=== PATIENT | female | born 1945 | race Asian ===

== ENCOUNTER 2017-12-24 14:55 | Inpatient (IN) | payer MEDICARE, OTHER ==
[~2017-12-24] VITALS: Ht 152.4 cm; Wt 52.1 kg
[2017-12-24] MEDS ORDERED: LOSA50TA25 PO (15:06)
[2017-12-24] MEDS ORDERED: FENO160 PO (15:06)
[2017-12-24] MEDS ORDERED: FURO20 PO (15:06)
[2017-12-24] MEDS ORDERED: COLC0.6T67 PO (15:06)
[2017-12-24] MEDS ORDERED: METO25XL PO (15:06)
[2017-12-24] MEDS ORDERED: ATOR40TA28 PO (15:06)
[2017-12-24] MEDS ORDERED: GLIP5 PO (15:06)
[2017-12-24 16:17] LABS: BASOPHILS % (AUTO) 1.1 % (0.0-2.0); EOSINOPHILS % (AUTO) 6.5 % (1.0-6.0); HEMATOCRIT 35.9 % (36-46); HEMOGLOBIN 12.2 g/dL (12.0-16.0); LYMPHOCYTES # (AUTO) 2.5 K/uL (1.0-4.8); LYMPHOCYTES % (AUTO) 47.1 % (22.0-44.0); MEAN CORPUSCULAR HGB CONC 33.9 G/dL (31.0-37.0); MEAN CORPUSCULAR VOLUME 94 fL (80-100); MONOCYTES # (AUTO) 0.6 K/uL (0.1-1.0); MONOCYTES % (AUTO) 11.5 % (2.0-9.0); NEUTROPHILS # (AUTO) 1.8 K/uL (1.8-7.7); NEUTROPHILS % (AUTO) 33.8 % (40.0-70.0); RED CELL DISTRIBUTION WIDTH 17.9 % (11.5-14.5)
[2017-12-24 16:31] LABS: CALCIUM, TOTAL 8.7 mg/dL (8.8-10.5); CREATININE 1.28 mg/dL (0.60-1.30); POTASSIUM 4.8 mmol/L (3.5-5.1)
[2017-12-24 16:37] LABS: ALBUMIN 2.9 g/dL (3.4-5.0); BILIRUBIN,TOTAL 0.6 mg/dL (0.1-1.0); TOTAL PROTEIN, SERUM 6.8 g/dL (6.4-8.2)
[2017-12-24 16:46] LABS: PLATELET COUNT (AUTO) 103 K/uL (150-450)
[2017-12-24] MEDS ORDERED: DEXTROSE 50%-WATER 25 GM/50 ML SYRINGE IVP ONE ×2 (17:25→17:30)
[2017-12-24] MEDS ORDERED: ASPIRIN 81 MG CHEWABLE TABLET PO ONE (17:30)
[2017-12-24 17:33] LABS: GLUCOSE,POINT OF CARE 49 MG/DL (70-110)
[2017-12-24 17:43] LABS: INR 1.1 (0.9-1.1); PROTHROMBIN TIME 11.8 SEC (9.4-11.6)
[2017-12-24] MEDS ORDERED: 0.9% SODIUM CHLORIDE 10 ML SYRINGE IVP PRN (18:00)
[2017-12-24] MEDS ORDERED: ACETAMINOPHEN 325 MG TABLET PO PRN (18:00)
[2017-12-24] MEDS ORDERED: ONDANSETRON HCL 4 MG/2 ML VIAL IVP PRN ×2 (18:00→22:00)
[2017-12-24 18:09] LABS: APPEARANCE,URINE CLEAR (CLEAR); BILIRUBIN,URINE NEGATIVE (NEGATIVE); GLUCOSE, URINE (UA) NEGATIVE (NEGATIVE); KETONES,URINE NEGATIVE (NEGATIVE); LEUKOCYTE ESTERASE ,URINE SMALL (NEGATIVE); NITRATE,URINE NEGATIVE (NEGATIVE); OCCULT BLOOD,URINE MODERATE (NEGATIVE); PH,URINE 6.5 (5.0-8.0); PROTEIN,URINE POS 1+ (NEGATIVE); UROBILINOGEN,URINE 0.2 mg/dL (<=1.0)
[2017-12-24 18:23] LABS: GLUCOSE,POINT OF CARE 304 MG/DL (70-110)
[2017-12-24 18:28] LABS: BACTERIA,URINE Rare /HPF (None Seen); RBC,URINE 0-2 /HPF (0-2); SQUAMOUS EPITHELIAL CELL,UR Few /LPF (None Seen)
[2017-12-24 20:37] VITALS: BP 160/72
[2017-12-24] MEDS ORDERED: VITAD400 PO (20:53)
[2017-12-24] MEDS ORDERED: ASPI81TA87 PO (20:53)
[2017-12-24] MEDS ORDERED: MULT1TAB70 PO (20:53)
[2017-12-24] MEDS ORDERED: PNEUMOCOCCAL VACCINE POLYVALENT 0.5 ML VIAL [PPSV23] IM ONE (21:30)
[2017-12-24] MEDS ORDERED: MORPHINE SULFATE 4 MG/ML SYRINGE IVP PRN (22:00)
[2017-12-24] MEDS ORDERED: HYDROCODONE/ACETAMINOPHEN 5-325 MG TABLET PO PRN (22:00)
[2017-12-24] MEDS ORDERED: ZOLPIDEM TARTRATE 5 MG TABLET PO PRN (22:00)
[2017-12-24] MEDS ORDERED: BISACODYL 10 MG RECTAL RECTAL SUPPOSITORY PR PRN (22:00)
[2017-12-24] MEDS ORDERED: MAGNESIUM HYDROXIDE SUSPENSION 30 ML UDCUP PO PRN (22:00)
[2017-12-24] MEDS ORDERED: DEXTROSE 5%-0.45% SODIUM CHL 500 ML IV ONE (22:00)
[2017-12-25] VITALS (7 sets, daily range): BP systolic 139–165; BP diastolic 55–87
[2017-12-25] MEDS: HEPARIN SODIUM,PORCINE 5,000 UNITS/ML VIAL SQ SCH ×2 (00:29→08:49)
[2017-12-25] MEDS: GlipiZIDE 5 MG TABLET PO SCH ×2 (05:45→17:30)
[2017-12-25] MEDS: ACETAMINOPHEN 325 MG TABLET PO PRN (06:08)
[2017-12-25 06:43] LABS: CALCIUM, TOTAL 8.8 mg/dL (8.8-10.5); CREATININE 1.09 mg/dL (0.60-1.30); POTASSIUM 4.5 mmol/L (3.5-5.1)
[2017-12-25 06:47] LABS: BASOPHILS % (AUTO) 0.9 % (0.0-2.0); EOSINOPHILS % (AUTO) 7.6 % (1.0-6.0); HEMATOCRIT 32.9 % (36-46); HEMOGLOBIN 11.5 g/dL (12.0-16.0); LYMPHOCYTES % (AUTO) 41.4 % (22.0-44.0); MEAN CORPUSCULAR HEMOGLOBIN 32.7 pg (26.0-34.0); MEAN CORPUSCULAR HGB CONC 34.9 G/dL (31.0-37.0); MEAN CORPUSCULAR VOLUME 94 fL (80-100); MONOCYTES # (AUTO) 0.5 K/uL (0.1-1.0); MONOCYTES % (AUTO) 9.3 % (2.0-9.0); NEUTROPHILS % (AUTO) 40.8 % (40.0-70.0); PLATELET COUNT (AUTO) 90 K/uL (150-450); RED BLOOD CELL COUNT(AUTO) 3.51 MIL/uL (4.00-5.20); RED CELL DISTRIBUTION WIDTH 18.5 % (11.5-14.5)
[2017-12-25] MEDS: DOCUSATE SODIUM 100 MG CAPSULE PO SCH ×2 (08:49→20:06)
[2017-12-25] MEDS: ATORVASTATIN CALCIUM 40 MG TABLET PO SCH (08:49)
[2017-12-25] MEDS: FENOFIBRATE 48 MG TABLET PO SCH (08:49)
[2017-12-25] MEDS: ASPIRIN 81 MG CHEWABLE TABLET PO SCH (08:49)
[2017-12-25] MEDS: LOSARTAN POTASSIUM 50 MG TABLET PO SCH (08:49)
[2017-12-25] MEDS: PANTOPRAZOLE SODIUM 40 MG DR TABLET PO SCH (08:49)
[2017-12-25] MEDS: COLCHICINE 0.6 MG TABLET PO SCH (08:49)
[2017-12-25] MEDS: CHOLECALCIFEROL (VIT D3) 400 UNITS TABLET PO SCH (08:49)
[2017-12-25] MEDS ORDERED: METOPROLOL SUCCINATE 25 MG ER TABLET PO SCH (09:00)
[2017-12-25 09:15] LABS: THYROID STIMULATING HORMONE 1.57 uIU/mL (0.36-3.74)
[2017-12-26 03:43] VITALS: BP 149/68
[2017-12-26] MEDS: GlipiZIDE 5 MG TABLET PO SCH ×2 (05:56→17:52)
[2017-12-26 06:16] LABS: BASOPHILS % (AUTO) 1.5 % (0.0-2.0); EOSINOPHILS % (AUTO) 9.2 % (1.0-6.0); HEMATOCRIT 36.3 % (36-46); HEMOGLOBIN 12.4 g/dL (12.0-16.0); LYMPHOCYTES # (AUTO) 1.7 K/uL (1.0-4.8); LYMPHOCYTES % (AUTO) 41.3 % (22.0-44.0); MEAN CORPUSCULAR HEMOGLOBIN 32.3 pg (26.0-34.0); MEAN CORPUSCULAR HGB CONC 34.2 G/dL (31.0-37.0); MEAN CORPUSCULAR VOLUME 95 fL (80-100); MONOCYTES # (AUTO) 0.3 K/uL (0.1-1.0); MONOCYTES % (AUTO) 8.1 % (2.0-9.0); NEUTROPHILS # (AUTO) 1.6 K/uL (1.8-7.7); NEUTROPHILS % (AUTO) 39.9 % (40.0-70.0); PLATELET COUNT (AUTO) 101 K/uL (150-450); RED BLOOD CELL COUNT(AUTO) 3.84 MIL/uL (4.00-5.20); RED CELL DISTRIBUTION WIDTH 18.3 % (11.5-14.5)
[2017-12-26 06:26] LABS: CALCIUM, TOTAL 8.9 mg/dL (8.8-10.5); CREATININE 1.3 mg/dL (0.60-1.30)
[2017-12-26 07:50] VITALS: BP 149/73
[2017-12-26] MEDS: ATORVASTATIN CALCIUM 40 MG TABLET PO SCH (08:12)
[2017-12-26] MEDS: DOCUSATE SODIUM 100 MG CAPSULE PO SCH (08:12)
[2017-12-26] MEDS: CHOLECALCIFEROL (VIT D3) 400 UNITS TABLET PO SCH (08:12)
[2017-12-26] MEDS: COLCHICINE 0.6 MG TABLET PO SCH (08:12)
[2017-12-26] MEDS: ASPIRIN 81 MG CHEWABLE TABLET PO SCH (08:12)
[2017-12-26] MEDS: FENOFIBRATE 48 MG TABLET PO SCH (08:12)
[2017-12-26] MEDS: PANTOPRAZOLE SODIUM 40 MG DR TABLET PO SCH (08:12)
[2017-12-26] MEDS: LOSARTAN POTASSIUM 50 MG TABLET PO SCH (08:20)
[2017-12-26 11:33] VITALS: BP 158/62
[2017-12-26 11:55] LABS: ALBUMIN 2.9 g/dL (3.4-5.0); BILIRUBIN,TOTAL 0.8 mg/dL (0.1-1.0); TOTAL PROTEIN, SERUM 6.8 g/dL (6.4-8.2)
[2017-12-26 15:55] VITALS: BP 169/71
[2017-12-26] MEDS: ACETAMINOPHEN 325 MG TABLET PO PRN (17:52)
[2017-12-27 17:53] LABS: GLUCOMETER DEV NAME(LOC) 5N 1P; GLUCOSE,POINT OF CARE 138 MG/DL (70-110)
[2018-01-11] MEDS ORDERED: PANT40TA25 PO (15:21)
== END 2017-12-26 19:25 | disposition home or self-care (01) | DRG 439 ==
LOC: EMS 14:56 → 5S 18:16
PROVIDERS: ADMIT Internal Medicine; ATTEND Internal Medicine
DX: K85.90 Acute pancreatitis without necrosis or infection, unspecified (principal); B69.0 Cysticercosis of central nervous system; R00.1 Bradycardia, unspecified; I10 Essential (primary) hypertension; D69.6 Thrombocytopenia, unspecified; M10.9 Gout, unspecified; E11.649 Type 2 diabetes mellitus with hypoglycemia without coma; E78.00 Pure hypercholesterolemia, unspecified; E78.5 Hyperlipidemia, unspecified; I44.7 Left bundle-branch block, unspecified; Z79.82 Long term (current) use of aspirin; Z79.899 Other long term (current) drug therapy; Z79.4 Long term (current) use of insulin; Z28.21 Immunization not carried out because of patient refusal
CPT/HCPCS: 70450; 76700; 80074; 84443; 87086; 90686; 93005; 93971; 96374; G0378; J1644

== ENCOUNTER → 2018-04-19 | Outpatient (CLI) | payer MEDICARE, OTHER ==
[~2018-04-19] MED LIST: ASPI81TA87 PO; MULT1TAB70 PO; PANT40TA25 PO; VITAD400 PO
[2018-04-19 11:29] LABS: HEMATOCRIT 37.5 % (36-46); HEMOGLOBIN 12.7 g/dL (12.0-16.0)
[2018-04-19 12:04] LABS: CREATININE 1.37 mg/dL (0.60-1.30); PHOSPHORUS 4.1 mg/dL (2.5-4.9); POTASSIUM 4.6 mmol/L (3.5-5.1)
[2018-04-19 12:08] LABS: % IRON SATURATION 38.6 % (22-44)
[2018-04-19 13:09] LABS: CREATININE,URINE 55.5 mg/dL (30.0-125.0)
[2018-04-19 13:10] LABS: CREATININE,SERUM FOR CRCL 1.37 mg/dL (0.60-1.30)
[2018-04-20 07:07] LABS: FOLATE SERUM 15.9 ng/mL (5.4-)
== END | disposition home or self-care (01) ==
LOC: LABPV 09:07
PROVIDERS: ATTEND Internal Medicine Nephrology
DX: I13.0 Hypertensive heart and chronic kidney disease with heart failure and stage 1 through stage 4 chronic kidney disease, or unspecified chronic kidney disease (principal); E11.22 Type 2 diabetes mellitus with diabetic chronic kidney disease; N18.3 Chronic kidney disease, stage 3 (moderate); I50.9 Heart failure, unspecified
CPT/HCPCS: 81050; 82575; 82607; 82746; 83540; 83550; 83970; 84100; 84156; 84300; 84466; 85014; 85018

== ENCOUNTER → 2018-06-21 | Outpatient (CLI) | payer MEDICARE ==
[2018-06-21 10:34] LABS: CREATININE 1.29 mg/dL (0.60-1.30); POTASSIUM 4.5 mmol/L (3.5-5.1)
[2018-06-21 10:35] LABS: CHOL/HDL RATIO 8.5 (3.9-5.7)
[2018-06-21 12:56] LABS: APPEARANCE,URINE CLOUDY (CLEAR); BILIRUBIN,URINE NEGATIVE (NEGATIVE); GLUCOSE, URINE (UA) NEGATIVE (NEGATIVE); KETONES,URINE NEGATIVE (NEGATIVE); LEUKOCYTE ESTERASE ,URINE MODERATE (NEGATIVE); NITRATE,URINE NEGATIVE (NEGATIVE); OCCULT BLOOD,URINE TRACE (NEGATIVE); PH,URINE 5.5 (5.0-8.0); PROTEIN,URINE SEE CONFIRM (NEGATIVE)
[2018-06-21 13:14] LABS: RBC,URINE 0-2 /HPF (0-2); SULFOSALICYLIC ACID,URINE 3+ (Negative); WBC,URINE 26-50 /HPF (0-5)
[2018-06-21 13:15] LABS: BACTERIA,URINE Moderate /HPF (None Seen); SQUAMOUS EPITHELIAL CELL,UR Moderate /LPF (None Seen)
[2018-06-21 14:23] LABS: PROTEIN,URINE RANDOM 244 mg/dL (0-11.9)
[2018-06-23 07:16] LABS: ALPHA-1 (IFE & PEP) 0.2 g/dL (0.0-0.4); BETA (IFE & ELP) 1.1 g/dL (0.7-1.3); GAMMA GLOBULINS (IFE & ELP) 1.7 g/dL (0.4-1.8); IGM (IMMUNOFIXATION) 212 mg/dL (26-217)
[2018-06-23 09:46] LABS: ALPHA-1 URINE 5.8 %; ALPHA-2 URINE 3.4 %
== END | disposition home or self-care (01) ==
LOC: LABPV 08:56
PROVIDERS: ATTEND Internal Medicine Nephrology
DX: I13.0 Hypertensive heart and chronic kidney disease with heart failure and stage 1 through stage 4 chronic kidney disease, or unspecified chronic kidney disease (principal); E11.22 Type 2 diabetes mellitus with diabetic chronic kidney disease; N18.3 Chronic kidney disease, stage 3 (moderate); I50.9 Heart failure, unspecified; R80.9 Proteinuria, unspecified
CPT/HCPCS: 82570; 82784; 84155; 84156; 84165; 84166; 86160; 86334; 86335; 87086

== ENCOUNTER → 2018-10-03 | Outpatient (CLI) | payer MEDICARE, OTHER ==
[2018-10-03 12:34] LABS: BASOPHILS % (AUTO) 1.5 % (0.0-2.0); EOSINOPHILS % (AUTO) 8.5 % (1.0-6.0); HEMATOCRIT 39.5 % (36-46); HEMOGLOBIN 12.9 g/dL (12.0-16.0); LYMPHOCYTES # (AUTO) 2.4 K/uL (1.0-4.8); LYMPHOCYTES % (AUTO) 47.3 % (22.0-44.0); MEAN CORPUSCULAR HEMOGLOBIN 31.4 pg (26.0-34.0); MEAN CORPUSCULAR HGB CONC 32.7 G/dL (31.0-37.0); MEAN CORPUSCULAR VOLUME 96 fL (80-100); MONOCYTES # (AUTO) 0.3 K/uL (0.1-1.0); MONOCYTES % (AUTO) 6.2 % (2.0-9.0); NEUTROPHILS # (AUTO) 1.8 K/uL (1.8-7.7); NEUTROPHILS % (AUTO) 36.5 % (40.0-70.0); PLATELET COUNT (AUTO) 108 K/uL (150-450); RED BLOOD CELL COUNT(AUTO) 4.11 MIL/uL (4.00-5.20); RED CELL DISTRIBUTION WIDTH 17.1 % (11.5-14.5)
[2018-10-03 12:45] LABS: INR 1.1 (0.9-1.1); PROTHROMBIN TIME 11.1 SEC (9.4-11.6)
[2018-10-03 12:59] LABS: CREATININE,URINE RANDOM 100.4 mg/dL (30.0-125.0)
[2018-10-03 13:00] LABS: ALBUMIN 2.8 g/dL (3.4-5.0); BILIRUBIN,TOTAL 0.9 mg/dL (0.1-1.0); CALCIUM, TOTAL 9.6 mg/dL (8.8-10.5); CHOL/HDL RATIO 4.5 (3.9-5.7); CREATININE 1.28 mg/dL (0.60-1.30); POTASSIUM 4.3 mmol/L (3.5-5.1); TOTAL PROTEIN, SERUM 7.3 g/dL (6.4-8.2)
== END | disposition home or self-care (01) ==
LOC: LABPV 09:50
PROVIDERS: ATTEND Internal Medicine Nephrology
DX: E11.22 Type 2 diabetes mellitus with diabetic chronic kidney disease (principal); I12.9 Hypertensive chronic kidney disease with stage 1 through stage 4 chronic kidney disease, or unspecified chronic kidney disease; N18.3 Chronic kidney disease, stage 3 (moderate); E78.49 Other hyperlipidemia; R80.9 Proteinuria, unspecified
CPT/HCPCS: 82570; 84156

== ENCOUNTER → 2019-03-05 | Outpatient (CLI) | payer MEDICARE, OTHER ==
[~2019-03-05] MED LIST changes: +CHOL400T56 PO; -VITAD400 PO
[2019-03-05 10:48] LABS: HEMATOCRIT 35.9 % (36-46); HEMOGLOBIN 12.2 g/dL (12.0-16.0)
[2019-03-05 11:05] LABS: CALCIUM, TOTAL 9.2 mg/dL (8.8-10.5); CREATININE 1.51 mg/dL (0.60-1.30); POTASSIUM 4.5 mmol/L (3.5-5.1)
== END | disposition home or self-care (01) ==
LOC: LABPV 08:31
PROVIDERS: ATTEND Internal Medicine Nephrology
DX: I12.9 Hypertensive chronic kidney disease with stage 1 through stage 4 chronic kidney disease, or unspecified chronic kidney disease (principal); N18.9 Chronic kidney disease, unspecified
CPT/HCPCS: 85014; 85018

== ENCOUNTER → 2019-04-30 | Outpatient (CLI) | payer MEDICARE, OTHER | END | disposition home or self-care (01) | LOC: RADMN 11:32 | PROVIDERS: ATTEND Internal Medicine Geriatric Medicine | DX: I67.82 Cerebral ischemia (principal); G93.89 Other specified disorders of brain; I65.29 Occlusion and stenosis of unspecified carotid artery | CPT/HCPCS: 70450 ==

== ENCOUNTER → 2019-05-08 | Outpatient (CLI) | payer MEDICARE, OTHER ==
[2019-05-08 09:16] LABS: CREATININE,URINE RANDOM 113.1 mg/dL (30.0-125.0)
[2019-05-08 09:33] LABS: ALBUMIN 2.7 g/dL (3.4-5.0); BILIRUBIN,TOTAL 0.4 mg/dL (0.1-1.0); CALCIUM, TOTAL 9.2 mg/dL (8.8-10.5); CHOL/HDL RATIO 5.2 (3.9-5.7); CREATININE 1.91 mg/dL (0.60-1.30); PHOSPHORUS 4.1 mg/dL (2.5-4.9); POTASSIUM 5.1 mmol/L (3.5-5.1); TOTAL PROTEIN, SERUM 7.6 g/dL (6.4-8.2)
== END | disposition home or self-care (01) ==
LOC: LABPV 08:07
PROVIDERS: ATTEND Internal Medicine Nephrology
DX: N18.3 Chronic kidney disease, stage 3 (moderate) (principal); N25.81 Secondary hyperparathyroidism of renal origin; R80.9 Proteinuria, unspecified; E78.5 Hyperlipidemia, unspecified
CPT/HCPCS: 82570; 83970; 84100; 84156

== ENCOUNTER → 2019-12-07 | Outpatient (CLI) | payer MEDICARE, OTHER ==
[~2019-12-07] MED LIST changes: +MULT-660 PO; -MULT1TAB70 PO; +PANT-31 PO; -PANT40TA25 PO
[2019-12-07 11:32] LABS: HEMATOCRIT 33.2 % (36-46); HEMOGLOBIN 11.1 g/dL (12.0-16.0)
[2019-12-07 11:43] LABS: APPEARANCE,URINE CLEAR (CLEAR); BILIRUBIN,URINE NEGATIVE (NEGATIVE); GLUCOSE, URINE (UA) NEGATIVE (NEGATIVE); KETONES,URINE NEGATIVE (NEGATIVE); LEUKOCYTE ESTERASE ,URINE NEGATIVE (NEGATIVE); NITRATE,URINE NEGATIVE (NEGATIVE); OCCULT BLOOD,URINE TRACE (NEGATIVE); PROTEIN,URINE SEE CONFIRM (NEGATIVE); UROBILINOGEN,URINE 0.2 mg/dL (<=1.0)
[2019-12-07 11:45] LABS: CALCIUM, TOTAL 9.1 mg/dL (8.8-10.5); CREATININE 1.51 mg/dL (0.60-1.30); POTASSIUM 5.3 mmol/L (3.5-5.1)
[2019-12-07 11:48] LABS: CREATININE,URINE RANDOM 47.3 mg/dL (30.0-125.0); PROTEIN,URINE RANDOM 70 mg/dL (0-11.9)
[2019-12-07 12:39] LABS: BACTERIA,URINE None Seen /HPF (None Seen); RBC,URINE 0-2 /HPF (0-2); SQUAMOUS EPITHELIAL CELL,UR Rare /LPF (None Seen); SULFOSALICYLIC ACID,URINE Trace (Negative); WBC,URINE None Seen /HPF (0-5)
== END | disposition home or self-care (01) ==
LOC: LABPV 08:56
PROVIDERS: ATTEND Internal Medicine Nephrology
DX: N02.8 Recurrent and persistent hematuria with other morphologic changes (principal); N18.4 Chronic kidney disease, stage 4 (severe); D63.1 Anemia in chronic kidney disease
CPT/HCPCS: 82570; 84156; 85014; 85018

== ENCOUNTER 2020-05-30 11:41 | Emergency (ER) | payer MEDICARE, OTHER ==
[~2020-05-30] VITALS: Ht 157.5 cm; Wt 50.0 kg
[2020-05-30] MEDS ORDERED: MORPHINE SULFATE 2 MG/ML SYRINGE IVP ONE ×2 (12:15→17:00)
[2020-05-30 17:25] VITALS: BP 184/87
== END 2020-05-30 18:17 | disposition home or self-care (01) ==
LOC: EMS 11:41
DX: S70.02XA Contusion of left hip, initial encounter (principal); E11.9 Type 2 diabetes mellitus without complications; E78.00 Pure hypercholesterolemia, unspecified; I10 Essential (primary) hypertension; W19.XXXA Unspecified fall, initial encounter; Y93.89 Activity, other specified; Y92.89 Other specified places as the place of occurrence of the external cause; Y99.8 Other external cause status
CPT/HCPCS: 72100; 73503; 73552; 73700; 96374; 96376; 99284; J2270

== ENCOUNTER → 2020-12-17 | Outpatient (CLI) | payer MEDICARE, OTHER ==
[~2020-12-17] MED LIST changes: +ACET-2247 PO; +AMLO-257 PO; -ASPI81TA87 PO; +B CO1CAP6 PO; +BISA10SU11 PR; +CLON0.1T2 PO; +DOCU-270 PO; +EPOE20006 SQ; +FAMO20 PO; +FURO20 PO; +HEPA500018 SQ; +HYDR-4723 PO; +METO25XL PO; +MOM30 PO; -MULT-660 PO; +ONDA-104 PO; +SODI650T33 PO
[2020-12-17 10:05] LABS: ALBUMIN 2.6 g/dL (3.4-5.0); BILIRUBIN,TOTAL 0.4 mg/dL (0.1-1.0); CALCIUM, TOTAL 8.5 mg/dL (8.8-10.5); CREATININE 2.93 mg/dL (0.60-1.30); POTASSIUM 5.3 mmol/L (3.5-5.1); TOTAL PROTEIN, SERUM 8.1 g/dL (6.4-8.2)
[2020-12-17 10:09] LABS: CREATININE,URINE RANDOM 140.2 mg/dL (30.0-125.0)
[2020-12-18 08:07] LABS: IGM (IMMUNOFIXATION) 202 mg/dL (26-217)
[2020-12-19 08:06] LABS: ALPHA-1 URINE 6.7 %
== END | disposition home or self-care (01) ==
LOC: LABPV 08:46
PROVIDERS: ATTEND Internal Medicine Nephrology
DX: I12.9 Hypertensive chronic kidney disease with stage 1 through stage 4 chronic kidney disease, or unspecified chronic kidney disease (principal); N18.9 Chronic kidney disease, unspecified; R80.9 Proteinuria, unspecified
CPT/HCPCS: 80053; 82570; 82784; 84156; 84166; 86160; 86334; 86335

== ENCOUNTER 2020-12-18 15:44 | Inpatient (IN) | payer MEDICARE, OTHER ==
[~2020-12-18] VITALS: Ht 139.7 cm; Wt 53.0 kg
[~2020-12-18 15:44] MED LIST changes: -B CO1CAP6 PO; -CLON0.1T2 PO; -EPOE20006 SQ; -FAMO20 PO; -FURO20 PO; -SODI650T33 PO
[2020-12-18 19:20] LABS: BASOPHILS % (AUTO) 1.1 % (0.0-2.0); EOSINOPHILS % (AUTO) 6.7 % (1.0-6.0); HEMATOCRIT 30.7 % (36-46); HEMOGLOBIN 10.2 g/dL (12.0-16.0); LYMPHOCYTES # (AUTO) 2.6 K/uL (1.0-4.8); LYMPHOCYTES % (AUTO) 35.9 % (22.0-44.0); MEAN CORPUSCULAR HEMOGLOBIN 33.3 pg (26.0-34.0); MEAN CORPUSCULAR HGB CONC 33.3 G/dL (31.0-37.0); MEAN CORPUSCULAR VOLUME 100 fL (80-100); MONOCYTES # (AUTO) 0.5 K/uL (0.1-1.0); MONOCYTES % (AUTO) 6.2 % (2.0-9.0); NEUTROPHILS # (AUTO) 3.7 K/uL (1.8-7.7); NEUTROPHILS % (AUTO) 50.1 % (40.0-70.0); PLATELET COUNT (AUTO) 178 K/uL (150-450); RED BLOOD CELL COUNT(AUTO) 3.07 MIL/uL (4.00-5.20); RED CELL DISTRIBUTION WIDTH 17.4 % (11.5-14.5)
[2020-12-18 19:30] LABS: CALCIUM, TOTAL 8.5 mg/dL (8.8-10.5); CREATININE 2.99 mg/dL (0.60-1.30); POTASSIUM 5.8 mmol/L (3.5-5.1)
[2020-12-18 19:36] LABS: ALBUMIN 2.4 g/dL (3.4-5.0); BILIRUBIN,TOTAL 0.3 mg/dL (0.1-1.0); TOTAL PROTEIN, SERUM 7.2 g/dL (6.4-8.2)
[2020-12-18 20:51] LABS: COVID AG,FIA SOURCE NASOPHARYNGEAL
[2020-12-18] MEDS ORDERED: ONDANSETRON HCL 4 MG/2 ML VIAL IVP PRN (21:15)
[2020-12-18] MEDS: AmLODIPine BESYLATE 5 MG TABLET PO SCH (21:16)
[2020-12-18] MEDS: ACETAMINOPHEN 325 MG TABLET PO PRN (21:16)
[2020-12-18] MEDS: FUROSEMIDE 20 MG/2 ML VIAL IVP SCH (21:18)
[2020-12-19 08:40] VITALS: BP 163/74
[2020-12-19] MEDS: METOPROLOL SUCCINATE 25 MG ER TABLET PO SCH (08:48)
[2020-12-19] MEDS: HEPARIN SODIUM,PORCINE 5,000 UNITS/ML VIAL SQ SCH ×2 (08:49→21:39)
[2020-12-19] MEDS: VITAMIN B COMP/VIT C/FOLIC ACID CAPSULE PO SCH (08:49)
[2020-12-19] MEDS: DOCUSATE SODIUM 100 MG CAPSULE PO SCH ×2 (08:49→21:39)
[2020-12-19] MEDS: FAMOTIDINE 20 MG TABLET PO SCH (08:49)
[2020-12-19] MEDS: ASPIRIN 81 MG CHEWABLE TABLET PO SCH (08:49)
[2020-12-19 08:52] LABS: CALCIUM, TOTAL 8.8 mg/dL (8.8-10.5); CREATININE 2.8 mg/dL (0.60-1.30); POTASSIUM 5.9 mmol/L (3.5-5.1)
[2020-12-19] MEDS ORDERED: SODIUM POLYSTYRENE SULFONATE 15 GM/60 ML SUSPENSION BOTTLE PO ONE ×2 (09:45→10:15)
[2020-12-19] MEDS ORDERED: SODIUM CHLORIDE 0.9% 250 ML IV ONE (10:50)
[2020-12-19 11:08] VITALS: BP 155/69
[2020-12-19] MEDS: SODIUM BICARBONATE 650 MG TABLET PO SCH ×2 (11:35→21:39)
[2020-12-19] MEDS: ALBUMIN HUMAN 25%-25GM/100ML 100 ML IV SCH ×3 (11:35→21:40)
[2020-12-19] MEDS: ACETAMINOPHEN 325 MG TABLET PO PRN (15:06)
[2020-12-19 15:44] VITALS: BP 156/75
[2020-12-19 19:39] VITALS: BP 153/71
[2020-12-19 20:18] LABS: GLUCOMETER DEV NAME(LOC) 6S.1; GLUCOSE,POINT OF CARE 120 MG/DL (70-110)
[2020-12-19] MEDS: AmLODIPine BESYLATE 5 MG TABLET PO SCH (21:39)
[2020-12-19] MEDS: FUROSEMIDE 20 MG/2 ML VIAL IVP SCH (21:40)
[2020-12-19] MEDS ORDERED: ALBUTEROL SULFATE 2.5 MG/0.5 ML NEB SOLUTION NEB STA (21:56)
[2020-12-19 22:06] VITALS: BP 164/90
[2020-12-19] MEDS ORDERED: ALBUTEROL SULFATE 2.5 MG/0.5 ML NEB SOLUTION NEB ONE (22:15)
[2020-12-19] MEDS ORDERED: BUMETANIDE 0.25 MG/ML 4 ML VIAL IVP ONE (22:15)
[2020-12-19] MEDS ORDERED: 0.9% SODIUM CHLORIDE 5 ML NEB SOLUTION NEB ONE (22:22)
[2020-12-19 22:27] LABS: POTASSIUM 4.5 mmol/L (3.5-5.1)
[2020-12-19 22:28] LABS: CALCIUM, TOTAL 8.5 mg/dL (8.8-10.5); CREATININE 2.65 mg/dL (0.60-1.30)
[2020-12-20] MEDS: ALBUMIN HUMAN 25%-25GM/100ML 100 ML IV SCH ×4 (03:51→21:02)
[2020-12-20 07:11] LABS: CALCIUM, TOTAL 8.1 mg/dL (8.8-10.5); CREATININE 2.53 mg/dL (0.60-1.30); PHOSPHORUS 4.7 mg/dL (2.5-4.9); POTASSIUM 4.4 mmol/L (3.5-5.1)
[2020-12-20 07:30] VITALS: BP 157/73
[2020-12-20] MEDS: DOCUSATE SODIUM 100 MG CAPSULE PO SCH ×2 (09:08→20:48)
[2020-12-20] MEDS: VITAMIN B COMP/VIT C/FOLIC ACID CAPSULE PO SCH (09:09)
[2020-12-20] MEDS: FAMOTIDINE 20 MG TABLET PO SCH (09:09)
[2020-12-20] MEDS: ASPIRIN 81 MG CHEWABLE TABLET PO SCH (09:09)
[2020-12-20] MEDS: METOPROLOL SUCCINATE 25 MG ER TABLET PO SCH (09:09)
[2020-12-20] MEDS: HEPARIN SODIUM,PORCINE 5,000 UNITS/ML VIAL SQ SCH ×2 (09:10→20:50)
[2020-12-20] MEDS ORDERED: SODIUM CHLORIDE 0.9% 250 ML IV ONE (10:00)
[2020-12-20 11:30] VITALS: BP 151/75
[2020-12-20] MEDS: SODIUM BICARBONATE 650 MG TABLET PO SCH ×2 (12:31→21:13)
[2020-12-20 16:14] VITALS: BP 144/97
[2020-12-20] MEDS: ACETAMINOPHEN 325 MG TABLET PO PRN (17:44)
[2020-12-20 19:53] VITALS: BP 153/59
[2020-12-20] MEDS: AmLODIPine BESYLATE 5 MG TABLET PO SCH (20:48)
[2020-12-20] MEDS: FUROSEMIDE 20 MG/2 ML VIAL IVP SCH (20:51)
[2020-12-20 23:47] VITALS: BP 152/72
[2020-12-21 03:53] VITALS: BP 139/67
[2020-12-21 07:02] VITALS: BP 139/63
[2020-12-21] MEDS: DOCUSATE SODIUM 100 MG CAPSULE PO SCH ×2 (08:40→20:08)
[2020-12-21] MEDS: ASPIRIN 81 MG CHEWABLE TABLET PO SCH (08:40)
[2020-12-21] MEDS: SODIUM BICARBONATE 650 MG TABLET PO SCH ×2 (08:40→20:08)
[2020-12-21] MEDS: VITAMIN B COMP/VIT C/FOLIC ACID CAPSULE PO SCH (08:40)
[2020-12-21] MEDS: HEPARIN SODIUM,PORCINE 5,000 UNITS/ML VIAL SQ SCH ×2 (08:40→20:09)
[2020-12-21] MEDS: FAMOTIDINE 20 MG TABLET PO SCH (08:40)
[2020-12-21] MEDS: METOPROLOL SUCCINATE 25 MG ER TABLET PO SCH (08:40)
[2020-12-21] MEDS: ALBUMIN HUMAN 25%-25GM/100ML 100 ML IV SCH ×2 (10:33→10:39)
[2020-12-21 10:44] LABS: BASOPHILS % (AUTO) 0.6 % (0.0-2.0); EOSINOPHILS % (AUTO) 1.2 % (1.0-6.0); HEMATOCRIT 23.3 % (36-46); HEMOGLOBIN 7.8 g/dL (12.0-16.0); LYMPHOCYTES # (AUTO) 1.5 K/uL (1.0-4.8); LYMPHOCYTES % (AUTO) 21.3 % (22.0-44.0); MEAN CORPUSCULAR HEMOGLOBIN 34.1 pg (26.0-34.0); MEAN CORPUSCULAR HGB CONC 33.3 G/dL (31.0-37.0); MEAN CORPUSCULAR VOLUME 102 fL (80-100); MONOCYTES # (AUTO) 0.4 K/uL (0.1-1.0); MONOCYTES % (AUTO) 5.5 % (2.0-9.0); NEUTROPHILS # (AUTO) 5.1 K/uL (1.8-7.7); NEUTROPHILS % (AUTO) 71.4 % (40.0-70.0); PLATELET COUNT (AUTO) 116 K/uL (150-450); RED BLOOD CELL COUNT(AUTO) 2.28 MIL/uL (4.00-5.20); RED CELL DISTRIBUTION WIDTH 17.9 % (11.5-14.5)
[2020-12-21 10:50] LABS: CALCIUM, TOTAL 8.1 mg/dL (8.8-10.5); CREATININE 3.06 mg/dL (0.60-1.30); POTASSIUM 4.6 mmol/L (3.5-5.1)
[2020-12-21 10:56] LABS: ALBUMIN 4.6 g/dL (3.4-5.0); BILIRUBIN,TOTAL 0.4 mg/dL (0.1-1.0); TOTAL PROTEIN, SERUM 7.3 g/dL (6.4-8.2)
[2020-12-21 12:00] VITALS: BP 140/70
[2020-12-21] MEDS: ACETAMINOPHEN 325 MG TABLET PO PRN (13:54)
[2020-12-21 16:02] VITALS: BP 153/68
[2020-12-21 18:37] LABS: APPEARANCE,URINE CLEAR (CLEAR); BILIRUBIN,URINE NEGATIVE (NEGATIVE); GLUCOSE, URINE (UA) 250 mg/dL (NEGATIVE); KETONES,URINE NEGATIVE (NEGATIVE); LEUKOCYTE ESTERASE ,URINE NEGATIVE (NEGATIVE); NITRATE,URINE NEGATIVE (NEGATIVE); OCCULT BLOOD,URINE LARGE (NEGATIVE); PROTEIN,URINE SEE CONFIRM (NEGATIVE); UROBILINOGEN,URINE 0.2 mg/dL (<=1.0)
[2020-12-21 19:09] LABS: SQUAMOUS EPITHELIAL CELL,UR Few /LPF (None Seen)
[2020-12-21 19:10] LABS: WBC,URINE 0-2 /HPF (0-5)
[2020-12-21 19:12] LABS: BACTERIA,URINE Few /HPF (None Seen)
[2020-12-21 19:13] LABS: SULFOSALICYLIC ACID,URINE 4+ (Negative)
[2020-12-21 19:46] LABS: CREATININE,URINE RANDOM 167.4 mg/dL (30.0-125.0); SODIUM,URINE RANDOM 32 mmol/l (20-110)
[2020-12-21 19:47] LABS: UREA NITROGEN,URINE RANDOM 395 mg/dL (350-1000)
[2020-12-21 19:49] VITALS: BP 141/66
[2020-12-21 19:49] LABS: PROTEIN,URINE RANDOM 2946 mg/dL (0-11.9)
[2020-12-21] MEDS: FUROSEMIDE 20 MG/2 ML VIAL IVP SCH (20:08)
[2020-12-21] MEDS: AmLODIPine BESYLATE 5 MG TABLET PO SCH (20:09)
[2020-12-22 00:04] VITALS: BP 140/63
[2020-12-22 04:29] VITALS: BP 166/77
[2020-12-22] MEDS: ACETAMINOPHEN 325 MG TABLET PO PRN ×2 (06:09→22:26)
[2020-12-22 06:35] LABS: BASOPHILS % (AUTO) 0.6 % (0.0-2.0); EOSINOPHILS % (AUTO) 4.9 % (1.0-6.0); HEMATOCRIT 23.3 % (36-46); HEMOGLOBIN 7.6 g/dL (12.0-16.0); LYMPHOCYTES # (AUTO) 2.1 K/uL (1.0-4.8); LYMPHOCYTES % (AUTO) 24.3 % (22.0-44.0); MEAN CORPUSCULAR HEMOGLOBIN 33.6 pg (26.0-34.0); MEAN CORPUSCULAR HGB CONC 32.8 G/dL (31.0-37.0); MEAN CORPUSCULAR VOLUME 103 fL (80-100); MONOCYTES # (AUTO) 0.7 K/uL (0.1-1.0); MONOCYTES % (AUTO) 8.1 % (2.0-9.0); NEUTROPHILS # (AUTO) 5.2 K/uL (1.8-7.7); NEUTROPHILS % (AUTO) 62.1 % (40.0-70.0); PLATELET COUNT (AUTO) 126 K/uL (150-450); RED BLOOD CELL COUNT(AUTO) 2.27 MIL/uL (4.00-5.20); RED CELL DISTRIBUTION WIDTH 18.2 % (11.5-14.5)
[2020-12-22 07:04] LABS: ALBUMIN 4.7 g/dL (3.4-5.0); BILIRUBIN,TOTAL 0.4 mg/dL (0.1-1.0); CALCIUM, TOTAL 8.4 mg/dL (8.8-10.5); CREATININE 3.21 mg/dL (0.60-1.30); MAGNESIUM 2.1 mg/dL (1.80-2.40); PHOSPHORUS 5.1 mg/dL (2.5-4.9); POTASSIUM 4.4 mmol/L (3.5-5.1); TOTAL PROTEIN, SERUM 7.3 g/dL (6.4-8.2)
[2020-12-22 08:16] VITALS: BP 137/64
[2020-12-22] MEDS: ASPIRIN 81 MG CHEWABLE TABLET PO SCH (08:42)
[2020-12-22] MEDS: SODIUM BICARBONATE 650 MG TABLET PO SCH ×2 (08:43→20:31)
[2020-12-22] MEDS: FAMOTIDINE 20 MG TABLET PO SCH (08:43)
[2020-12-22] MEDS: VITAMIN B COMP/VIT C/FOLIC ACID CAPSULE PO SCH (08:43)
[2020-12-22] MEDS: DOCUSATE SODIUM 100 MG CAPSULE PO SCH ×2 (08:43→20:31)
[2020-12-22] MEDS: HEPARIN SODIUM,PORCINE 5,000 UNITS/ML VIAL SQ SCH ×2 (08:43→20:32)
[2020-12-22] MEDS: METOPROLOL SUCCINATE 25 MG ER TABLET PO SCH (08:43)
[2020-12-22 12:36] VITALS: BP 133/66
[2020-12-22 16:35] VITALS: BP 156/69
[2020-12-22 20:28] VITALS: BP 163/66
[2020-12-22] MEDS: AmLODIPine BESYLATE 5 MG TABLET PO SCH (20:31)
[2020-12-22] MEDS: FUROSEMIDE 20 MG/2 ML VIAL IVP SCH (20:31)
[2020-12-23 00:20] VITALS: BP 148/69
[2020-12-23 04:21] VITALS: BP 151/69
[2020-12-23 06:08] LABS: BASOPHILS % (AUTO) 1.5 % (0.0-2.0); EOSINOPHILS % (AUTO) 3.6 % (1.0-6.0); HEMATOCRIT 23.6 % (36-46); HEMOGLOBIN 7.7 g/dL (12.0-16.0); LYMPHOCYTES # (AUTO) 1.8 K/uL (1.0-4.8); LYMPHOCYTES % (AUTO) 21.6 % (22.0-44.0); MEAN CORPUSCULAR HEMOGLOBIN 33.2 pg (26.0-34.0); MEAN CORPUSCULAR HGB CONC 32.6 G/dL (31.0-37.0); MEAN CORPUSCULAR VOLUME 102 fL (80-100); MONOCYTES # (AUTO) 0.7 K/uL (0.1-1.0); MONOCYTES % (AUTO) 8.8 % (2.0-9.0); NEUTROPHILS # (AUTO) 5.5 K/uL (1.8-7.7); NEUTROPHILS % (AUTO) 64.5 % (40.0-70.0); PLATELET COUNT (AUTO) 121 K/uL (150-450); RED BLOOD CELL COUNT(AUTO) 2.32 MIL/uL (4.00-5.20); RED CELL DISTRIBUTION WIDTH 17.6 % (11.5-14.5)
[2020-12-23 07:05] LABS: ALBUMIN 4.2 g/dL (3.4-5.0); BILIRUBIN,TOTAL 0.4 mg/dL (0.1-1.0); CALCIUM, TOTAL 8.4 mg/dL (8.8-10.5); CHOL/HDL RATIO 4.1 (3.9-5.7); CREATININE 3.14 mg/dL (0.60-1.30); MAGNESIUM 2.3 mg/dL (1.80-2.40); POTASSIUM 4.4 mmol/L (3.5-5.1); THYROID STIMULATING HORMONE 1.99 uIU/mL (0.36-3.74); TOTAL PROTEIN, SERUM 7.1 g/dL (6.4-8.2)
[2020-12-23 07:15] LABS: URIC ACID 8.3 mg/dL (2.6-7.2)
[2020-12-23 07:33] VITALS: BP 163/68
[2020-12-23] MEDS: ASPIRIN 81 MG CHEWABLE TABLET PO SCH (08:44)
[2020-12-23] MEDS: FAMOTIDINE 20 MG TABLET PO SCH (08:46)
[2020-12-23] MEDS: DOCUSATE SODIUM 100 MG CAPSULE PO SCH ×2 (08:46→20:10)
[2020-12-23] MEDS: VITAMIN B COMP/VIT C/FOLIC ACID CAPSULE PO SCH (08:48)
[2020-12-23] MEDS: SODIUM BICARBONATE 650 MG TABLET PO SCH ×2 (08:48→20:10)
[2020-12-23] MEDS: METOPROLOL SUCCINATE 25 MG ER TABLET PO SCH (08:48)
[2020-12-23] MEDS: HEPARIN SODIUM,PORCINE 5,000 UNITS/ML VIAL SQ SCH ×3 (08:49→20:23)
[2020-12-23] MEDS: ACETAMINOPHEN 325 MG TABLET PO PRN (09:42)
[2020-12-23 10:59] VITALS: BP 152/73
[2020-12-23 16:11] VITALS: BP 161/78
[2020-12-23] MEDS: AmLODIPine BESYLATE 5 MG TABLET PO SCH (20:10)
[2020-12-23] MEDS: FUROSEMIDE 20 MG/2 ML VIAL IVP SCH (20:11)
[2020-12-23 20:51] VITALS: BP 151/71
[2020-12-24 00:23] VITALS: BP 165/78
[2020-12-24 04:28] VITALS: BP 151/60
[2020-12-24 07:36] VITALS: BP 165/68
[2020-12-24 08:08] LABS: BASOPHILS % (AUTO) 0.6 % (0.0-2.0); EOSINOPHILS % (AUTO) 3.3 % (1.0-6.0); HEMATOCRIT 24.8 % (36-46); HEMOGLOBIN 8.2 g/dL (12.0-16.0); LYMPHOCYTES # (AUTO) 1.7 K/uL (1.0-4.8); LYMPHOCYTES % (AUTO) 18.6 % (22.0-44.0); MEAN CORPUSCULAR HEMOGLOBIN 33.6 pg (26.0-34.0); MEAN CORPUSCULAR HGB CONC 33.1 G/dL (31.0-37.0); MEAN CORPUSCULAR VOLUME 101 fL (80-100); MONOCYTES # (AUTO) 0.7 K/uL (0.1-1.0); MONOCYTES % (AUTO) 7.4 % (2.0-9.0); NEUTROPHILS # (AUTO) 6.5 K/uL (1.8-7.7); NEUTROPHILS % (AUTO) 70.1 % (40.0-70.0); PLATELET COUNT (AUTO) 132 K/uL (150-450); RED BLOOD CELL COUNT(AUTO) 2.44 MIL/uL (4.00-5.20); RED CELL DISTRIBUTION WIDTH 17.7 % (11.5-14.5)
[2020-12-24 08:21] LABS: ALBUMIN 3.9 g/dL (3.4-5.0); CALCIUM, TOTAL 8.5 mg/dL (8.8-10.5); CREATININE 3.01 mg/dL (0.60-1.30); POTASSIUM 4.3 mmol/L (3.5-5.1)
[2020-12-24 08:44] LABS: BILIRUBIN,TOTAL 0.5 mg/dL (0.1-1.0); TOTAL PROTEIN, SERUM 7.3 g/dL (6.4-8.2)
[2020-12-24] MEDS: METOPROLOL SUCCINATE 25 MG ER TABLET PO SCH (08:46)
[2020-12-24] MEDS: DOCUSATE SODIUM 100 MG CAPSULE PO SCH ×2 (08:47→21:47)
[2020-12-24] MEDS: SODIUM BICARBONATE 650 MG TABLET PO SCH ×2 (08:47→21:47)
[2020-12-24] MEDS: VITAMIN B COMP/VIT C/FOLIC ACID CAPSULE PO SCH (08:47)
[2020-12-24] MEDS: FAMOTIDINE 20 MG TABLET PO SCH (08:47)
[2020-12-24] MEDS: ASPIRIN 81 MG CHEWABLE TABLET PO SCH (08:47)
[2020-12-24] MEDS: HEPARIN SODIUM,PORCINE 5,000 UNITS/ML VIAL SQ SCH ×2 (08:48→21:47)
[2020-12-24] MEDS: FUROSEMIDE 20 MG/2 ML VIAL IVP SCH ×2 (08:48→21:47)
[2020-12-24] MEDS: EPOETIN ALFA 10,000 UNITS/ML VIAL SQ SCH (08:52)
[2020-12-24 11:01] VITALS: BP 137/67
[2020-12-24 15:13] VITALS: BP 154/65
[2020-12-24 19:44] VITALS: BP 164/70
[2020-12-24] MEDS: AmLODIPine BESYLATE 5 MG TABLET PO SCH (21:47)
[2020-12-24 21:49] LABS: GLUCOMETER DEV NAME(LOC) 5S.1; GLUCOSE,POINT OF CARE 156 MG/DL (70-110)
[2020-12-25 00:12] VITALS: BP 155/80
[2020-12-25 05:12] VITALS: BP 154/68
[2020-12-25 06:43] LABS: BASOPHILS % (AUTO) 0.7 % (0.0-2.0); EOSINOPHILS % (AUTO) 4.5 % (1.0-6.0); HEMATOCRIT 24.8 % (36-46); LYMPHOCYTES # (AUTO) 1.8 K/uL (1.0-4.8); LYMPHOCYTES % (AUTO) 20.8 % (22.0-44.0); MEAN CORPUSCULAR HEMOGLOBIN 32.6 pg (26.0-34.0); MEAN CORPUSCULAR HGB CONC 32.3 G/dL (31.0-37.0); MEAN CORPUSCULAR VOLUME 101 fL (80-100); MONOCYTES # (AUTO) 0.7 K/uL (0.1-1.0); MONOCYTES % (AUTO) 8.6 % (2.0-9.0); NEUTROPHILS # (AUTO) 5.5 K/uL (1.8-7.7); NEUTROPHILS % (AUTO) 65.4 % (40.0-70.0); PLATELET COUNT (AUTO) 135 K/uL (150-450); RED BLOOD CELL COUNT(AUTO) 2.45 MIL/uL (4.00-5.20)
[2020-12-25 07:06] LABS: ALBUMIN 3.5 g/dL (3.4-5.0); BILIRUBIN,TOTAL 0.5 mg/dL (0.1-1.0); CALCIUM, TOTAL 8.4 mg/dL (8.8-10.5); CREATININE 2.92 mg/dL (0.60-1.30); POTASSIUM 3.9 mmol/L (3.5-5.1)
[2020-12-25] MEDS: DOCUSATE SODIUM 100 MG CAPSULE PO SCH ×2 (08:27→20:01)
[2020-12-25] MEDS: ASPIRIN 81 MG CHEWABLE TABLET PO SCH (08:28)
[2020-12-25] MEDS: SODIUM BICARBONATE 650 MG TABLET PO SCH ×2 (08:29→20:02)
[2020-12-25] MEDS: FUROSEMIDE 20 MG/2 ML VIAL IVP SCH ×2 (08:29→20:02)
[2020-12-25] MEDS: METOPROLOL SUCCINATE 25 MG ER TABLET PO SCH (08:29)
[2020-12-25] MEDS: HEPARIN SODIUM,PORCINE 5,000 UNITS/ML VIAL SQ SCH ×2 (08:29→20:02)
[2020-12-25] MEDS: FAMOTIDINE 20 MG TABLET PO SCH (08:29)
[2020-12-25] MEDS: VITAMIN B COMP/VIT C/FOLIC ACID CAPSULE PO SCH (08:29)
[2020-12-25 12:45] VITALS: BP 161/67
[2020-12-25] MEDS ORDERED: INFLUENZA VIRUS VACCINE QVS 2021-22 (6MO+)/PF 60 MCG/0.5 ML SYRINGE IM. ONE (13:45)
[2020-12-25 16:00] VITALS: BP 172/66
[2020-12-25] MEDS: CloNIDine HCL 0.1 MG TABLET PO PRN (16:34)
[2020-12-25 18:19] VITALS: BP 149/68
[2020-12-25 19:58] VITALS: BP 158/79
[2020-12-25] MEDS: AmLODIPine BESYLATE 5 MG TABLET PO SCH (20:01)
[2020-12-25] MEDS: ACETAMINOPHEN 325 MG TABLET PO PRN (20:01)
[2020-12-26 00:14] VITALS: BP 151/57
[2020-12-26 00:17] LABS: CREATININE,SERUM FOR CRCL 2.92 mg/dL (0.60-1.30)
[2020-12-26 05:08] VITALS: BP 151/68
[2020-12-26 07:01] LABS: BASOPHILS % (AUTO) 0.8 % (0.0-2.0); EOSINOPHILS % (AUTO) 7.7 % (1.0-6.0); HEMATOCRIT 25.5 % (36-46); HEMOGLOBIN 8.4 g/dL (12.0-16.0); LYMPHOCYTES # (AUTO) 1.7 K/uL (1.0-4.8); LYMPHOCYTES % (AUTO) 23.1 % (22.0-44.0); MEAN CORPUSCULAR HEMOGLOBIN 33.7 pg (26.0-34.0); MEAN CORPUSCULAR HGB CONC 33.1 G/dL (31.0-37.0); MEAN CORPUSCULAR VOLUME 102 fL (80-100); MONOCYTES # (AUTO) 0.7 K/uL (0.1-1.0); MONOCYTES % (AUTO) 9.8 % (2.0-9.0); NEUTROPHILS # (AUTO) 4.2 K/uL (1.8-7.7); NEUTROPHILS % (AUTO) 58.6 % (40.0-70.0); PLATELET COUNT (AUTO) 139 K/uL (150-450); RED CELL DISTRIBUTION WIDTH 17.3 % (11.5-14.5)
[2020-12-26 07:09] LABS: BILIRUBIN,TOTAL 0.3 mg/dL (0.1-1.0); CALCIUM, TOTAL 8.4 mg/dL (8.8-10.5); TOTAL PROTEIN, SERUM 6.5 g/dL (6.4-8.2)
[2020-12-26 07:25] VITALS: BP 166/68
[2020-12-26] MEDS: SODIUM BICARBONATE 650 MG TABLET PO SCH (08:34)
[2020-12-26] MEDS: DOCUSATE SODIUM 100 MG CAPSULE PO SCH (08:34)
[2020-12-26] MEDS: VITAMIN B COMP/VIT C/FOLIC ACID CAPSULE PO SCH (08:34)
[2020-12-26] MEDS: ASPIRIN 81 MG CHEWABLE TABLET PO SCH (08:34)
[2020-12-26] MEDS: EPOETIN ALFA 10,000 UNITS/ML VIAL SQ SCH (08:35)
[2020-12-26] MEDS: FUROSEMIDE 20 MG/2 ML VIAL IVP SCH (08:35)
[2020-12-26] MEDS: FAMOTIDINE 20 MG TABLET PO SCH (08:35)
[2020-12-26] MEDS: HEPARIN SODIUM,PORCINE 5,000 UNITS/ML VIAL SQ SCH (08:36)
[2020-12-26] MEDS ORDERED: METOPROLOL SUCCINATE 50 MG ER TABLET PO SCH (09:00)
[2020-12-26 11:57] VITALS: BP 130/75
[2020-12-26] MEDS ORDERED: EPOE20006 SQ (12:48)
[2020-12-26] MEDS ORDERED: FAMO20 PO (12:51)
[2020-12-26] MEDS ORDERED: FURO20 PO ×2 (12:52)
[2020-12-26] MEDS ORDERED: SODI650T33 PO (12:59)
[2020-12-26] MEDS ORDERED: B CO1CAP6 PO (13:00)
[2020-12-26] MEDS ORDERED: CLON0.1T2 PO (13:03)
[2020-12-26 14:58] VITALS: BP 166/59
[2020-12-26] MEDS: CloNIDine HCL 0.1 MG TABLET PO PRN (17:58)
[2020-12-26] MEDS ORDERED: AmLODIPine BESYLATE 10 MG TABLET PO SCH (21:00)
== END 2020-12-26 18:10 | DRG 682 ==
LOC: EMS 15:46 → 6N 12-19 05:35 → 5S 12-19 22:35
PROVIDERS: ADMIT Internal Medicine; ATTEND Internal Medicine Geriatric Medicine
PROC: 5A09357 Assistance with Respiratory Ventilation, Less than 24 Consecutive Hours, Continuous Positive Airway Pressure (ICD-10-PCS; principal; 2020-12-19)
PROC: 5A09357 Assistance with Respiratory Ventilation, Less than 24 Consecutive Hours, Continuous Positive Airway Pressure (ICD-10-PCS; 2020-12-20)
DX: N17.0 Acute kidney failure with tubular necrosis (principal); J96.00 Acute respiratory failure, unspecified whether with hypoxia or hypercapnia; I50.43 Acute on chronic combined systolic (congestive) and diastolic (congestive) heart failure; I13.0 Hypertensive heart and chronic kidney disease with heart failure and stage 1 through stage 4 chronic kidney disease, or unspecified chronic kidney disease; E87.0 Hyperosmolality and hypernatremia; E44.0 Moderate protein-calorie malnutrition; J91.8 Pleural effusion in other conditions classified elsewhere; N18.9 Chronic kidney disease, unspecified; R80.9 Proteinuria, unspecified; E78.5 Hyperlipidemia, unspecified; E87.5 Hyperkalemia; E11.22 Type 2 diabetes mellitus with diabetic chronic kidney disease; E78.00 Pure hypercholesterolemia, unspecified; D63.1 Anemia in chronic kidney disease; I27.20 Pulmonary hypertension, unspecified; M10.9 Gout, unspecified; Z20.822 Contact with and (suspected) exposure to COVID-19; D69.6 Thrombocytopenia, unspecified; Z95.1 Presence of aortocoronary bypass graft; Z79.899 Other long term (current) drug therapy; Z83.3 Family history of diabetes mellitus; Z68.27 Body mass index [BMI] 27.0-27.9, adult
CPT/HCPCS: 71045; 71250; 76770; 80048; 80053; 80061; 81001; 81002; 81003; 81050; 82570; 82575; 82962; 83036; 83735; 83880; 84100; 84145; 84156; 84166; 84300; 84443; 84484; 84540; 84550; 85025; 93005; 93306; 94640; 94660; 97110; 97116; 97140; 97163; 97530; 99285; J0885; J1644; J1940; J3490; J7050; P9046; 36415-L1; 36415-TC; J7613

== ENCOUNTER 2021-02-22 06:10 | Inpatient (IN) | payer MEDICARE, OTHER ==
[~2021-02-22] VITALS: Ht 139.7 cm; Wt 62.1 kg
[~2021-02-22 06:10] MED LIST changes: +B CO1CAP6 PO; -BISA10SU11 PR; -CHOL400T56 PO; +CLON0.1T2 PO; +EPOE20006 SQ; +FAMO20 PO; +FURO20 PO; -HEPA500018 SQ; -HYDR-4723 PO; -MOM30 PO; -PANT-31 PO; +SODI650T33 PO
[2021-02-22 07:11] LABS: BASOPHILS % (AUTO) 1.5 % (0.0-2.0); EOSINOPHILS % (AUTO) 10.8 % (1.0-6.0); HEMATOCRIT 28.2 % (36-46); LYMPHOCYTES # (AUTO) 1.6 K/uL (1.0-4.8); LYMPHOCYTES % (AUTO) 37.9 % (22.0-44.0); MEAN CORPUSCULAR HEMOGLOBIN 29.5 pg (26.0-34.0); MEAN CORPUSCULAR HGB CONC 31.8 G/dL (31.0-37.0); MEAN CORPUSCULAR VOLUME 93 fL (80-100); MONOCYTES # (AUTO) 0.3 K/uL (0.1-1.0); MONOCYTES % (AUTO) 7.8 % (2.0-9.0); NEUTROPHILS # (AUTO) 1.8 K/uL (1.8-7.7); PLATELET COUNT (AUTO) 181 K/uL (150-450); RED BLOOD CELL COUNT(AUTO) 3.05 MIL/uL (4.00-5.20); RED CELL DISTRIBUTION WIDTH 20.4 % (11.5-14.5)
[2021-02-22 07:12] LABS: ANION GAP 7 mmol/L (8-16); CARBON DIOXIDE 24 mmol/L (22-29); CHLORIDE 109 mmol/L (98-107); CREATININE 3.86 mg/dL (0.60-1.30); GLOMERULAR FILTR. RATE CALC 11 mL/min (>60); GLUCOSE,RANDOM 127 mg/dL (70-110); POTASSIUM 5.9 mmol/L (3.5-5.1); SODIUM SERUM 140 mmol/L (136-145); UREA NITROGEN, BLOOD 60 mg/dL (7-18)
[2021-02-22 07:18] LABS: ALANINE AMINOTRANSFERASE 19 U/L (12-78); ALBUMIN 1.6 g/dL (3.4-5.0); ALKALINE PHOSPHATASE 86 U/L (46-116); ASPARTATE AMINOTRANSFERASE 29 U/L (15-37); BILIRUBIN,TOTAL 0.2 mg/dL (0.1-1.0); CREATINE KINASE, TOTAL ONLY 66 U/L (26-192); TOTAL PROTEIN, SERUM 6.2 g/dL (6.4-8.2)
[2021-02-22 07:19] LABS: COVID AG,FIA SOURCE NASOPHARYNGEAL
[2021-02-22 07:33] LABS: B-TYPE NATRIURETIC PEPTIDE > 5000 pg/mL (0-100)
[2021-02-22] MEDS ORDERED: INSULIN REGULAR, HUMAN 100 UNITS/ML IVP ONE (08:15)
[2021-02-22] MEDS ORDERED: FUROSEMIDE 40 MG/4 ML VIAL IVP ONE (08:15)
[2021-02-22] MEDS ORDERED: DEXTROSE 50%-WATER 25 GM/50 ML SYRINGE IVP ONE (08:15)
[2021-02-22 09:17] LABS: APPEARANCE,URINE CLEAR (CLEAR); BILIRUBIN,URINE NEGATIVE (NEGATIVE); GLUCOSE, URINE (UA) 500 mg/dL (NEGATIVE); KETONES,URINE NEGATIVE (NEGATIVE); LEUKOCYTE ESTERASE ,URINE NEGATIVE (NEGATIVE); NITRATE,URINE NEGATIVE (NEGATIVE); OCCULT BLOOD,URINE TRACE (NEGATIVE); PH,URINE 6.5 (5.0-8.0); PROTEIN,URINE SEE CONFIRM (NEGATIVE); UROBILINOGEN,URINE 0.2 mg/dL (<=1.0)
[2021-02-22 09:32] LABS: BACTERIA,URINE None Seen /HPF (None Seen); RBC,URINE 0-2 /HPF (0-2); SQUAMOUS EPITHELIAL CELL,UR Rare /LPF (None Seen); SULFOSALICYLIC ACID,URINE 3+ (Negative); WBC,URINE None Seen /HPF (0-5)
[2021-02-22 13:01] VITALS: BP 183/87
[2021-02-22] MEDS ORDERED: AMLO-258 PO (14:45)
[2021-02-22] MEDS ORDERED: METO-558 PO (14:45)
[2021-02-22 15:33] VITALS: BP 170/76
[2021-02-22] MEDS: AmLODIPine BESYLATE 10 MG TABLET PO SCH (15:50)
[2021-02-22] MEDS: FUROSEMIDE 40 MG/4 ML VIAL IVP SCH ×2 (15:51→20:49)
[2021-02-22 19:26] LABS: APPEARANCE,URINE CLEAR (CLEAR); BILIRUBIN,URINE NEGATIVE (NEGATIVE); GLUCOSE, URINE (UA) NEGATIVE (NEGATIVE); KETONES,URINE NEGATIVE (NEGATIVE); LEUKOCYTE ESTERASE ,URINE NEGATIVE (NEGATIVE); NITRATE,URINE NEGATIVE (NEGATIVE); OCCULT BLOOD,URINE TRACE (NEGATIVE); PROTEIN,URINE SEE CONFIRM (NEGATIVE); UROBILINOGEN,URINE 0.2 mg/dL (<=1.0)
[2021-02-22] MEDS ORDERED: CloNIDine HCL 0.1 MG TABLET PO PRN ×2 (19:30→20:00)
[2021-02-22 19:36] LABS: CREATININE,URINE RANDOM 20.4 mg/dL (30.0-125.0); PROTEIN,URINE RANDOM 259 mg/dL (0-11.9); SODIUM,URINE RANDOM 159 mmol/l (20-110); UREA NITROGEN,URINE RANDOM 196 mg/dL (350-1000)
[2021-02-22 19:42] LABS: BACTERIA,URINE Rare /HPF (None Seen); WBC,URINE 0-2 /HPF (0-5)
[2021-02-22 19:43] LABS: SQUAMOUS EPITHELIAL CELL,UR Few /LPF (None Seen)
[2021-02-22 20:00] VITALS: BP 151/85
[2021-02-22] MEDS ORDERED: MAGNESIUM HYDROXIDE SUSPENSION 30 ML UDCUP PO PRN (20:00)
[2021-02-22] MEDS ORDERED: ONDANSETRON HCL 4 MG/2 ML VIAL IVP PRN (20:00)
[2021-02-22] MEDS ORDERED: BISACODYL 10 MG RECTAL RECTAL SUPPOSITORY PR PRN (20:00)
[2021-02-22] MEDS ORDERED: ONDANSETRON HCL 4 MG TABLET PO PRN (20:00)
[2021-02-22] MEDS ORDERED: MORPHINE SULFATE 2 MG/ML SYRINGE IVP PRN (20:00)
[2021-02-22] MEDS ORDERED: ACETAMINOPHEN 325 MG TABLET PO PRN (20:00)
[2021-02-22] MEDS ORDERED: SODIUM CHLORIDE 0.9% 100 ML ONE (20:30)
[2021-02-22] MEDS: SODIUM BICARBONATE 650 MG TABLET PO SCH (20:45)
[2021-02-22] MEDS: DOCUSATE SODIUM 100 MG CAPSULE PO SCH (20:45)
[2021-02-22] MEDS: CefTRIAXone 1 GM/DEXTROSE 50 ML IV SCH (20:45)
[2021-02-22] MEDS: METOPROLOL SUCCINATE 50 MG ER TABLET PO SCH (20:45)
[2021-02-22] MEDS ORDERED: AmLODIPine BESYLATE 10 MG TABLET PO SCH (21:00)
[2021-02-22] MEDS ORDERED: DOCUSATE SODIUM 100 MG CAPSULE PO SCH (21:00)
[2021-02-22] MEDS: AZITHROMYCIN 500 MG/NS 250 ML IV SCH (21:48)
[2021-02-23 00:25] VITALS: BP 122/65
[2021-02-23] MEDS: HEPARIN SODIUM,PORCINE 5,000 UNITS/ML VIAL SQ SCH ×3 (00:34→16:00)
[2021-02-23 04:45] VITALS: BP 120/62
[2021-02-23] MEDS: DOCUSATE SODIUM 100 MG CAPSULE PO SCH ×2 (08:05→20:58)
[2021-02-23] MEDS: SODIUM BICARBONATE 650 MG TABLET PO SCH ×2 (08:06→20:58)
[2021-02-23] MEDS: METOPROLOL SUCCINATE 50 MG ER TABLET PO SCH (08:06)
[2021-02-23] MEDS: VITAMIN B COMP/VIT C/FOLIC ACID CAPSULE PO SCH (08:06)
[2021-02-23] MEDS: FUROSEMIDE 40 MG/4 ML VIAL IVP SCH (08:06)
[2021-02-23] MEDS: AmLODIPine BESYLATE 10 MG TABLET PO SCH (08:06)
[2021-02-23 08:09] VITALS: BP 155/67
[2021-02-23] MEDS: PANTOPRAZOLE SODIUM 40 MG/VIAL IVP SCH (08:20)
[2021-02-23 08:28] LABS: EOSINOPHILS % (AUTO) 4.3 % (1.0-6.0); HEMATOCRIT 29.6 % (36-46); HEMOGLOBIN 9.7 g/dL (12.0-16.0); LYMPHOCYTES # (AUTO) 1.6 K/uL (1.0-4.8); LYMPHOCYTES % (AUTO) 33.2 % (22.0-44.0); MEAN CORPUSCULAR HEMOGLOBIN 29.8 pg (26.0-34.0); MEAN CORPUSCULAR HGB CONC 32.8 G/dL (31.0-37.0); MEAN CORPUSCULAR VOLUME 91 fL (80-100); MONOCYTES # (AUTO) 0.3 K/uL (0.1-1.0); MONOCYTES % (AUTO) 6.3 % (2.0-9.0); NEUTROPHILS # (AUTO) 2.6 K/uL (1.8-7.7); NEUTROPHILS % (AUTO) 54.2 % (40.0-70.0); PLATELET COUNT (AUTO) 206 K/uL (150-450); RED BLOOD CELL COUNT(AUTO) 3.26 MIL/uL (4.00-5.20); RED CELL DISTRIBUTION WIDTH 21.2 % (11.5-14.5)
[2021-02-23 08:42] LABS: MAGNESIUM 2.3 mg/dL (1.80-2.40)
[2021-02-23 08:55] LABS: % IRON SATURATION 18.6 % (22-44)
[2021-02-23 08:56] LABS: CALCIUM, TOTAL 8.3 mg/dL (8.8-10.5); CREATININE 3.71 mg/dL (0.60-1.30); POTASSIUM 5.6 mmol/L (3.5-5.1)
[2021-02-23] MEDS ORDERED: FAMOTIDINE 20 MG TABLET PO SCH (09:00)
[2021-02-23] MEDS ORDERED: FUROSEMIDE 20 MG TABLET PO SCH (09:00)
[2021-02-23 11:30] VITALS: BP 126/60
[2021-02-23 15:45] VITALS: BP 116/62
[2021-02-23] MEDS: SODIUM ZIRCONIUM CYCLOSILICATE 5 GM POWDER PACKET PO SCH ×2 (16:29→20:58)
[2021-02-23 19:28] VITALS: BP 102/51
[2021-02-23] MEDS ORDERED: ATROPINE SULFATE 0.4 MG/ML VIAL IVP ONE (20:00)
[2021-02-23] MEDS ORDERED: ATROPINE SULFATE 0.4 MG/ML VIAL IVP PRN (20:15)
[2021-02-23] MEDS: ACETAMINOPHEN 325 MG TABLET PO PRN (20:59)
[2021-02-23] MEDS: CefTRIAXone 1 GM/DEXTROSE 50 ML IV SCH (21:04)
[2021-02-23] MEDS: AZITHROMYCIN 500 MG/NS 250 ML IV SCH (21:51)
[2021-02-23] MEDS ORDERED: DEXTROSE 50%-WATER 25 GM/50 ML SYRINGE IVP ONE (23:15)
[2021-02-23] MEDS ORDERED: INSULIN REGULAR, HUMAN 100 UNITS/ML SQ ONE (23:15)
[2021-02-23] MEDS ORDERED: SODIUM POLYSTYRENE SULFONATE 15 GM/60 ML SUSPENSION BOTTLE PO ONE (23:30)
[2021-02-23] MEDS ORDERED: ALBUTEROL SULFATE 2.5 MG/0.5 ML NEB SOLUTION NEB ONE (23:30)
[2021-02-24 00:21] VITALS: BP 95/51
[2021-02-24] MEDS: HEPARIN SODIUM,PORCINE 5,000 UNITS/ML VIAL SQ SCH ×3 (00:30→16:29)
[2021-02-24] MEDS: ACETAMINOPHEN 325 MG TABLET PO PRN (03:22)
[2021-02-24 05:02] VITALS: BP 114/59
[2021-02-24 07:18] LABS: CALCIUM, TOTAL 8.2 mg/dL (8.8-10.5); CREATININE 4.32 mg/dL (0.60-1.30); POTASSIUM 4.7 mmol/L (3.5-5.1)
[2021-02-24 07:51] VITALS: BP 107/61
[2021-02-24] MEDS: SODIUM ZIRCONIUM CYCLOSILICATE 5 GM POWDER PACKET PO SCH ×3 (08:25→20:57)
[2021-02-24] MEDS: VITAMIN B COMP/VIT C/FOLIC ACID CAPSULE PO SCH (08:29)
[2021-02-24] MEDS: DOCUSATE SODIUM 100 MG CAPSULE PO SCH ×2 (08:29→20:57)
[2021-02-24] MEDS: SODIUM BICARBONATE 650 MG TABLET PO SCH ×2 (08:29→20:57)
[2021-02-24] MEDS: AmLODIPine BESYLATE 10 MG TABLET PO SCH (08:29)
[2021-02-24] MEDS: PANTOPRAZOLE SODIUM 40 MG/VIAL IVP SCH (09:00)
[2021-02-24] MEDS: FUROSEMIDE 40 MG/4 ML VIAL IVP SCH ×2 (13:01→20:57)
[2021-02-24 13:18] VITALS: BP 109/56
[2021-02-24 14:06] LABS: GLUCOMETER DEV NAME(LOC) 5N.1C; GLUCOSE,POINT OF CARE 108 MG/DL (70-110)
[2021-02-24 16:11] VITALS: BP 112/51
[2021-02-24 19:31] LABS: GLUCOMETER DEV NAME(LOC) 5N.3; GLUCOSE,POINT OF CARE 125 MG/DL (70-110)
[2021-02-24 19:31] LABS: GLUCOMETER DEV NAME(LOC) 5N.3; GLUCOSE,POINT OF CARE 175 MG/DL (70-110)
[2021-02-24 20:10] VITALS: BP 116/50
[2021-02-24] MEDS: CefTRIAXone 1 GM/DEXTROSE 50 ML IV SCH (20:57)
[2021-02-24] MEDS: AZITHROMYCIN 500 MG/NS 250 ML IV SCH (21:51)
[2021-02-25] VITALS: BP 113/80
[2021-02-25] MEDS: HEPARIN SODIUM,PORCINE 5,000 UNITS/ML VIAL SQ SCH ×4 (00:36→23:38)
[2021-02-25 04:39] VITALS: BP 126/54
[2021-02-25 08:03] VITALS: BP 137/57
[2021-02-25] MEDS: PANTOPRAZOLE SODIUM 40 MG/VIAL IVP SCH (08:04)
[2021-02-25] MEDS: DOCUSATE SODIUM 100 MG CAPSULE PO SCH ×2 (08:05→21:00)
[2021-02-25] MEDS: FUROSEMIDE 40 MG/4 ML VIAL IVP SCH ×2 (08:05→21:52)
[2021-02-25] MEDS: VITAMIN B COMP/VIT C/FOLIC ACID CAPSULE PO SCH (08:05)
[2021-02-25] MEDS: SODIUM ZIRCONIUM CYCLOSILICATE 5 GM POWDER PACKET PO SCH (08:06)
[2021-02-25] MEDS: SODIUM BICARBONATE 650 MG TABLET PO SCH ×2 (08:07→21:52)
[2021-02-25] MEDS: AmLODIPine BESYLATE 10 MG TABLET PO SCH (08:08)
[2021-02-25 08:39] LABS: CALCIUM, TOTAL 7.8 mg/dL (8.8-10.5); CREATININE 4.45 mg/dL (0.60-1.30); MAGNESIUM 2.2 mg/dL (1.80-2.40); PHOSPHORUS 6.9 mg/dL (2.5-4.9); POTASSIUM 4.1 mmol/L (3.5-5.1)
[2021-02-25 11:56] VITALS: BP 143/66
[2021-02-25 15:41] VITALS: BP 126/55
[2021-02-25] MEDS: ACETAMINOPHEN 325 MG TABLET PO PRN (17:24)
[2021-02-25 18:49] LABS: CREATININE,SERUM FOR CRCL 4.45 mg/dL (0.60-1.30)
[2021-02-25 20:15] VITALS: BP 147/65
[2021-02-25] MEDS: CefTRIAXone 1 GM/DEXTROSE 50 ML IV SCH (21:52)
[2021-02-25] MEDS: AZITHROMYCIN 500 MG/NS 250 ML IV SCH (22:45)
[2021-02-26] VITALS (7 sets, daily range): BP systolic 115–140; BP diastolic 49–64
[2021-02-26 06:37] LABS: TOTAL PROTEIN, SERUM 6.8 g/dL (6.4-8.2)
[2021-02-26] MEDS: HEPARIN SODIUM,PORCINE 5,000 UNITS/ML VIAL SQ SCH ×4 (08:00→23:51)
[2021-02-26] MEDS: VITAMIN B COMP/VIT C/FOLIC ACID CAPSULE PO SCH (09:23)
[2021-02-26] MEDS: SODIUM BICARBONATE 650 MG TABLET PO SCH ×2 (09:23→20:57)
[2021-02-26] MEDS: DOCUSATE SODIUM 100 MG CAPSULE PO SCH ×2 (09:23→21:00)
[2021-02-26] MEDS: AmLODIPine BESYLATE 10 MG TABLET PO SCH (09:24)
[2021-02-26] MEDS: PANTOPRAZOLE SODIUM 40 MG/VIAL IVP SCH (09:24)
[2021-02-26] MEDS: FUROSEMIDE 40 MG/4 ML VIAL IVP SCH ×2 (09:24→20:57)
[2021-02-26] MEDS: SODIUM ZIRCONIUM CYCLOSILICATE 5 GM POWDER PACKET PO SCH (11:55)
[2021-02-26 11:56] LABS: SPECIMENTYPE,BODY FLUID PLEURAL
[2021-02-26] MEDS: ACETAMINOPHEN 325 MG TABLET PO PRN ×2 (13:22→23:03)
[2021-02-26] MEDS: IPRATROPIUM BROMIDE 0.5 MG/2.5 ML NEB SOLUTION NEB PRN ×2 (13:44→19:20)
[2021-02-26] MEDS: ALBUTEROL SULFATE 2.5 MG/0.5 ML NEB SOLUTION NEB PRN ×2 (13:45→19:20)
[2021-02-26 14:10] LABS: APPEARANCE,SPUN,BODY FLUID CLEAR (CLEAR); APPEARANCE,UNSPUN,BODY FLUID CLOUDY (CLEAR); BASOPHILS,BODY FLUID 0 %; COLOR,BODY FLUID YELLOW (LT YELLOW); EOSINOPHILS,BF (ANAL) 0 %; LYMPHOCYTES,BODY FLUID 91 %; MONOCYTES,BODY FLUID 1 %; NEUTROPHILS,BODY FLUID 8 %; TOTAL VOLUME,BODY FLUID 500 mL; WBC, BODY FLUID 38 /cu. mm.
[2021-02-26] MEDS: CefTRIAXone 1 GM/DEXTROSE 50 ML IV SCH (20:57)
[2021-02-26] MEDS: ZOLPIDEM TARTRATE 5 MG TABLET PO PRN (23:03)
[2021-02-26] MEDS: AZITHROMYCIN 500 MG/NS 250 ML IV SCH (23:04)
[2021-02-27] MEDS: ALBUTEROL SULFATE 2.5 MG/0.5 ML NEB SOLUTION NEB PRN ×3 (03:55→17:03)
[2021-02-27] MEDS: IPRATROPIUM BROMIDE 0.5 MG/2.5 ML NEB SOLUTION NEB PRN ×3 (03:55→17:02)
[2021-02-27 04:38] VITALS: BP 142/62
[2021-02-27 07:46] VITALS: BP 143/73
[2021-02-27] MEDS: HEPARIN SODIUM,PORCINE 5,000 UNITS/ML VIAL SQ SCH ×2 (08:00→18:21)
[2021-02-27] MEDS ORDERED: LIDOCAINE/PF 1% 30 ML VIAL ONE ×2 (08:57→15:19)
[2021-02-27] MEDS ORDERED: SODIUM CHLORIDE 0.45% 0 ML IV ONE (08:58)
[2021-02-27] MEDS: SODIUM BICARBONATE 650 MG TABLET PO SCH ×2 (09:00→20:22)
[2021-02-27] MEDS: PANTOPRAZOLE SODIUM 40 MG/VIAL IVP SCH (09:00)
[2021-02-27] MEDS: DOCUSATE SODIUM 100 MG CAPSULE PO SCH ×2 (09:00→20:54)
[2021-02-27] MEDS: VITAMIN B COMP/VIT C/FOLIC ACID CAPSULE PO SCH (09:00)
[2021-02-27] MEDS: FUROSEMIDE 40 MG/4 ML VIAL IVP SCH ×2 (09:00→20:29)
[2021-02-27] MEDS: SODIUM ZIRCONIUM CYCLOSILICATE 5 GM POWDER PACKET PO SCH (09:00)
[2021-02-27] MEDS: AmLODIPine BESYLATE 10 MG TABLET PO SCH (09:00)
[2021-02-27] MEDS ORDERED: SODIUM CHLORIDE 0.9% 1,000 ML ONE (10:21)
[2021-02-27] MEDS ORDERED: SODIUM CHLORIDE 0.9% 1,000 ML IV ONE (10:45)
[2021-02-27] MEDS ORDERED: ETHYL ALCOHOL 62% ANTISEPTIC NASAL INHALANT 0.6 ML AMPUL NASAL ONE (10:45)
[2021-02-27 10:46] LABS: GLUCOMETER DEV NAME(LOC) SDS.; GLUCOSE,POINT OF CARE 121 MG/DL (70-110)
[2021-02-27] MEDS ORDERED: HEPARIN SODIUM,PORCINE 5,000 UNITS/ML VIAL ONE ×2 (12:06→14:20)
[2021-02-27] MEDS ORDERED: SODIUM CHLORIDE 0.9% 100 ML ONE (12:07)
[2021-02-27] MEDS ORDERED: SODIUM CHLORIDE 0.9% 50 ML ONE (12:07)
[2021-02-27 17:05] VITALS: BP 108/65
[2021-02-27 20:15] VITALS: BP 112/64
[2021-02-27] MEDS: ACETAMINOPHEN 325 MG TABLET PO PRN (20:23)
[2021-02-27] MEDS: ZOLPIDEM TARTRATE 5 MG TABLET PO PRN (20:27)
[2021-02-27] MEDS ORDERED: SODIUM CHLORIDE 0.9% 250 ML IV ONE (20:40)
[2021-02-27] MEDS: CefTRIAXone 1 GM/DEXTROSE 50 ML IV SCH (20:46)
[2021-02-27] MEDS: AZITHROMYCIN 500 MG/NS 250 ML IV SCH (22:07)
[2021-02-28] VITALS (7 sets, daily range): BP systolic 133–188; BP diastolic 53–92
[2021-02-28] MEDS: HEPARIN SODIUM,PORCINE 5,000 UNITS/ML VIAL SQ SCH ×4 (01:04→23:49)
[2021-02-28] MEDS: IPRATROPIUM BROMIDE 0.5 MG/2.5 ML NEB SOLUTION NEB PRN ×2 (03:22→20:13)
[2021-02-28] MEDS: ALBUTEROL SULFATE 2.5 MG/0.5 ML NEB SOLUTION NEB PRN ×2 (03:22→20:13)
[2021-02-28] MEDS ORDERED: LIDOCAINE/PF 2% 5 ML VIAL IM ONE (06:27)
[2021-02-28] MEDS ORDERED: PROPOFOL 1% 20 ML VIAL IVP ONE (06:27)
[2021-02-28] MEDS ORDERED: ALBUTEROL SULFATE HFA 90 MCG/PUFF 8 GM INHALER IH ONE (06:27)
[2021-02-28] MEDS: FUROSEMIDE 40 MG/4 ML VIAL IVP SCH ×2 (08:39→20:30)
[2021-02-28] MEDS: DOCUSATE SODIUM 100 MG CAPSULE PO SCH ×2 (08:42→20:30)
[2021-02-28] MEDS: PANTOPRAZOLE SODIUM 40 MG/VIAL IVP SCH (08:42)
[2021-02-28] MEDS: SODIUM BICARBONATE 650 MG TABLET PO SCH ×2 (08:43→20:30)
[2021-02-28] MEDS: VITAMIN B COMP/VIT C/FOLIC ACID CAPSULE PO SCH (08:43)
[2021-02-28] MEDS: AmLODIPine BESYLATE 10 MG TABLET PO SCH (08:43)
[2021-02-28] MEDS: SODIUM ZIRCONIUM CYCLOSILICATE 5 GM POWDER PACKET PO SCH (09:00)
[2021-02-28] MEDS ORDERED: FUROSEMIDE 40 MG/4 ML VIAL IVP ONE (11:45)
[2021-02-28] MEDS: ACETAMINOPHEN 325 MG TABLET PO PRN ×2 (12:10→17:28)
[2021-02-28] MEDS: IPRATROPIUM BROMIDE 0.5 MG/2.5 ML NEB SOLUTION NEB SCH ×3 (14:42→23:00)
[2021-02-28] MEDS: ALBUTEROL SULFATE 2.5 MG/0.5 ML NEB SOLUTION NEB SCH ×3 (14:42→23:00)
[2021-02-28] MEDS: CefTRIAXone 1 GM/DEXTROSE 50 ML IV SCH (20:29)
[2021-02-28] MEDS: ZOLPIDEM TARTRATE 5 MG TABLET PO PRN (20:30)
[2021-02-28] MEDS: AZITHROMYCIN 500 MG/NS 250 ML IV SCH (21:38)
[2021-03-01] MEDS: IPRATROPIUM BROMIDE 0.5 MG/2.5 ML NEB SOLUTION NEB PRN (00:07)
[2021-03-01] MEDS: ALBUTEROL SULFATE 2.5 MG/0.5 ML NEB SOLUTION NEB PRN (00:07)
[2021-03-01] MEDS: ACETAMINOPHEN 325 MG TABLET PO PRN (01:39)
[2021-03-01] MEDS: IPRATROPIUM BROMIDE 0.5 MG/2.5 ML NEB SOLUTION NEB SCH ×6 (02:18→23:04)
[2021-03-01] MEDS: ALBUTEROL SULFATE 2.5 MG/0.5 ML NEB SOLUTION NEB SCH ×6 (02:18→23:04)
[2021-03-01] MEDS: HYDROCODONE/ACETAMINOPHEN 5-325 MG TABLET PO PRN (02:31)
[2021-03-01 03:38] VITALS: BP 179/93
[2021-03-01 06:31] LABS: GLUCOMETER DEV NAME(LOC) 5N.3; GLUCOSE,POINT OF CARE 126 MG/DL (70-110)
[2021-03-01 07:47] VITALS: BP 166/76
[2021-03-01] MEDS ORDERED: EPOETIN ALFA 10,000 UNITS/ML VIAL SQ SCH (09:00)
[2021-03-01 09:54] LABS: BASOPHILS % (AUTO) 0.2 % (0.0-2.0); EOSINOPHILS % (AUTO) 0.1 % (1.0-6.0); HEMATOCRIT 26.4 % (36-46); HEMOGLOBIN 8.4 g/dL (12.0-16.0); LYMPHOCYTES # (AUTO) 0.3 K/uL (1.0-4.8); LYMPHOCYTES % (AUTO) 3.2 % (22.0-44.0); MEAN CORPUSCULAR HEMOGLOBIN 29.3 pg (26.0-34.0); MEAN CORPUSCULAR HGB CONC 31.7 G/dL (31.0-37.0); MEAN CORPUSCULAR VOLUME 93 fL (80-100); MONOCYTES # (AUTO) 0.4 K/uL (0.1-1.0); MONOCYTES % (AUTO) 4.7 % (2.0-9.0); NEUTROPHILS # (AUTO) 8.6 K/uL (1.8-7.7); PLATELET COUNT (AUTO) 121 K/uL (150-450); RED BLOOD CELL COUNT(AUTO) 2.85 MIL/uL (4.00-5.20); RED CELL DISTRIBUTION WIDTH 22.1 % (11.5-14.5)
[2021-03-01 09:55] LABS: CALCIUM, TOTAL 8.5 mg/dL (8.8-10.5); CREATININE 3.88 mg/dL (0.60-1.30); POTASSIUM 4.8 mmol/L (3.5-5.1)
[2021-03-01 09:59] LABS: MAGNESIUM 2.2 mg/dL (1.80-2.40); PHOSPHORUS 7.3 mg/dL (2.5-4.9)
[2021-03-01 10:12] LABS: NEUTROPHILS % (AUTO) 91.8 % (40.0-70.0)
[2021-03-01] MEDS: VITAMIN B COMP/VIT C/FOLIC ACID CAPSULE PO SCH (10:16)
[2021-03-01] MEDS: DOCUSATE SODIUM 100 MG CAPSULE PO SCH ×2 (10:17→20:24)
[2021-03-01] MEDS: PANTOPRAZOLE SODIUM 40 MG/VIAL IVP SCH (10:17)
[2021-03-01] MEDS: AmLODIPine BESYLATE 10 MG TABLET PO SCH (10:17)
[2021-03-01] MEDS: SODIUM BICARBONATE 650 MG TABLET PO SCH ×2 (10:17→20:23)
[2021-03-01] MEDS: HEPARIN SODIUM,PORCINE 5,000 UNITS/ML VIAL SQ SCH ×3 (10:19→23:50)
[2021-03-01 11:24] VITALS: BP 135/86
[2021-03-01] MEDS ORDERED: FUROSEMIDE 40 MG/4 ML VIAL IVP SCH (11:45)
[2021-03-01] MEDS: FUROSEMIDE 40 MG/4 ML VIAL IVP SCH (11:52)
[2021-03-01] MEDS ORDERED: METOLAZONE 2.5 MG TABLET PO ONE (12:45)
[2021-03-01] MEDS: SODIUM ZIRCONIUM CYCLOSILICATE 5 GM POWDER PACKET PO SCH (13:10)
[2021-03-01] MEDS: FUROSEMIDE 100 MG/10 ML VIAL IVP SCH ×2 (16:42→20:24)
[2021-03-01 20:11] VITALS: BP 180/79
[2021-03-01 20:25] VITALS: BP 138/64
[2021-03-01] MEDS: CefTRIAXone 1 GM/DEXTROSE 50 ML IV SCH (20:26)
[2021-03-01 23:38] VITALS: BP 135/71
[2021-03-01] MEDS: AZITHROMYCIN 500 MG/NS 250 ML IV SCH (23:40)
[2021-03-02] MEDS: HYDROCODONE/ACETAMINOPHEN 5-325 MG TABLET PO PRN ×2 (00:05→23:37)
[2021-03-02] MEDS: ALBUTEROL SULFATE 2.5 MG/0.5 ML NEB SOLUTION NEB SCH ×6 (02:04→23:09)
[2021-03-02] MEDS: IPRATROPIUM BROMIDE 0.5 MG/2.5 ML NEB SOLUTION NEB SCH ×6 (02:04→23:09)
[2021-03-02 03:53] VITALS: BP 139/55
[2021-03-02 07:30] VITALS: BP 137/71
[2021-03-02] MEDS: DOCUSATE SODIUM 100 MG CAPSULE PO SCH ×2 (09:17→21:09)
[2021-03-02] MEDS: VITAMIN B COMP/VIT C/FOLIC ACID CAPSULE PO SCH (09:17)
[2021-03-02] MEDS: SODIUM BICARBONATE 650 MG TABLET PO SCH ×2 (09:17→21:10)
[2021-03-02] MEDS: SODIUM ZIRCONIUM CYCLOSILICATE 5 GM POWDER PACKET PO SCH (09:21)
[2021-03-02] MEDS: HEPARIN SODIUM,PORCINE 5,000 UNITS/ML VIAL SQ SCH ×3 (09:22→23:37)
[2021-03-02] MEDS: PANTOPRAZOLE SODIUM 40 MG/VIAL IVP SCH (09:23)
[2021-03-02] MEDS: FUROSEMIDE 100 MG/10 ML VIAL IVP SCH ×5 (09:23→21:09)
[2021-03-02] MEDS: AmLODIPine BESYLATE 10 MG TABLET PO SCH (09:25)
[2021-03-02 12:30] VITALS: BP 129/63
[2021-03-02 14:17] LABS: GLUCOMETER DEV NAME(LOC) 5S.2B; GLUCOSE,POINT OF CARE 136 MG/DL (70-110)
[2021-03-02 15:54] LABS: BASOPHILS % (AUTO) 0.9 % (0.0-2.0); EOSINOPHILS % (AUTO) 0 % (1.0-6.0); HEMATOCRIT 26.2 % (36-46); HEMOGLOBIN 8.3 g/dL (12.0-16.0); LYMPHOCYTES # (AUTO) 1.9 K/uL (1.0-4.8); MEAN CORPUSCULAR HGB CONC 31.6 G/dL (31.0-37.0); MEAN CORPUSCULAR VOLUME 92 fL (80-100); MONOCYTES # (AUTO) 0.4 K/uL (0.1-1.0); MONOCYTES % (AUTO) 3.9 % (2.0-9.0); NEUTROPHILS # (AUTO) 8.7 K/uL (1.8-7.7); NEUTROPHILS % (AUTO) 78.2 % (40.0-70.0); PLATELET COUNT (AUTO) 146 K/uL (150-450); RED BLOOD CELL COUNT(AUTO) 2.86 MIL/uL (4.00-5.20); RED CELL DISTRIBUTION WIDTH 22.6 % (11.5-14.5)
[2021-03-02 16:01] LABS: CALCIUM, TOTAL 8.3 mg/dL (8.8-10.5); CREATININE 4.25 mg/dL (0.60-1.30); MAGNESIUM 2.2 mg/dL (1.80-2.40); PHOSPHORUS 7.4 mg/dL (2.5-4.9); POTASSIUM 4.2 mmol/L (3.5-5.1)
[2021-03-02 16:10] VITALS: BP 136/54
[2021-03-02] MEDS ORDERED: LACTULOSE 20 GM/30 ML SOLUTION UDCUP PO PRN (16:30)
[2021-03-02 19:58] VITALS: BP 140/59
[2021-03-02] MEDS: CefTRIAXone 1 GM/DEXTROSE 50 ML IV SCH ×2 (21:00→21:09)
[2021-03-02] MEDS: AZITHROMYCIN 500 MG/NS 250 ML IV SCH (22:00)
[2021-03-02 23:49] VITALS: BP 135/53
[2021-03-03] MEDS: ALBUTEROL SULFATE 2.5 MG/0.5 ML NEB SOLUTION NEB SCH ×5 (02:31→19:45)
[2021-03-03] MEDS: IPRATROPIUM BROMIDE 0.5 MG/2.5 ML NEB SOLUTION NEB SCH ×5 (02:31→19:45)
[2021-03-03 04:24] VITALS: BP 138/56
[2021-03-03 07:46] VITALS: BP 120/77
[2021-03-03 07:52] LABS: HEMATOCRIT 25.6 % (36-46); HEMOGLOBIN 8.1 g/dL (12.0-16.0); MEAN CORPUSCULAR HEMOGLOBIN 29.1 pg (26.0-34.0); MEAN CORPUSCULAR HGB CONC 31.7 G/dL (31.0-37.0); MEAN CORPUSCULAR VOLUME 92 fL (80-100); PLATELET COUNT (AUTO) 134 K/uL (150-450); RED BLOOD CELL COUNT(AUTO) 2.79 MIL/uL (4.00-5.20); RED CELL DISTRIBUTION WIDTH 22.1 % (11.5-14.5)
[2021-03-03] MEDS: DOCUSATE SODIUM 100 MG CAPSULE PO SCH ×2 (08:00→20:37)
[2021-03-03] MEDS: AmLODIPine BESYLATE 10 MG TABLET PO SCH (08:00)
[2021-03-03] MEDS: SODIUM BICARBONATE 650 MG TABLET PO SCH ×2 (08:01→20:37)
[2021-03-03] MEDS: VITAMIN B COMP/VIT C/FOLIC ACID CAPSULE PO SCH (08:01)
[2021-03-03] MEDS: HEPARIN SODIUM,PORCINE 5,000 UNITS/ML VIAL SQ SCH ×3 (08:06→23:57)
[2021-03-03] MEDS: PANTOPRAZOLE SODIUM 40 MG/VIAL IVP SCH (08:09)
[2021-03-03] MEDS: SODIUM ZIRCONIUM CYCLOSILICATE 5 GM POWDER PACKET PO SCH (08:09)
[2021-03-03 08:11] LABS: CALCIUM, TOTAL 8.3 mg/dL (8.8-10.5); CREATININE 4.25 mg/dL (0.60-1.30); MAGNESIUM 2.3 mg/dL (1.80-2.40); PHOSPHORUS 7.9 mg/dL (2.5-4.9); POTASSIUM 3.7 mmol/L (3.5-5.1)
[2021-03-03] MEDS ORDERED: FUROSEMIDE 100 MG/10 ML VIAL IVP SCH (09:00)
[2021-03-03 11:19] VITALS: BP 133/65
[2021-03-03 11:19] LABS: BAND NEUTROPHILS % (MANUAL) 3 % (0-5); LYMPHOCYTES % (MANUAL) 12 % (22-44); SEGMENTED NEUTROPHILS % 85 % (40-70)
[2021-03-03] MEDS: ACETAMINOPHEN 325 MG TABLET PO PRN (13:38)
[2021-03-03 15:12] VITALS: BP 131/53
[2021-03-03] MEDS ORDERED: FUROSEMIDE 40 MG/4 ML VIAL IVP SCH (16:00)
[2021-03-03] MEDS: FUROSEMIDE 100 MG/10 ML VIAL IVP SCH ×2 (16:05→20:36)
[2021-03-03 20:31] VITALS: BP 126/56
[2021-03-03] MEDS: CefTRIAXone 1 GM/DEXTROSE 50 ML IV SCH (20:35)
[2021-03-03] MEDS: AZITHROMYCIN 500 MG/NS 250 ML IV SCH (22:25)
[2021-03-04] VITALS (12 sets, daily range): BP systolic 91–148; BP diastolic 53–65
[2021-03-04] MEDS: ALBUTEROL SULFATE 2.5 MG/0.5 ML NEB SOLUTION NEB SCH ×7 (00:29→23:26)
[2021-03-04] MEDS: IPRATROPIUM BROMIDE 0.5 MG/2.5 ML NEB SOLUTION NEB SCH ×7 (00:29→23:26)
[2021-03-04] MEDS: HEPARIN SODIUM,PORCINE 5,000 UNITS/ML VIAL SQ SCH ×2 (08:00→18:40)
[2021-03-04] MEDS: PANTOPRAZOLE SODIUM 40 MG/VIAL IVP SCH (08:24)
[2021-03-04] MEDS: FUROSEMIDE 100 MG/10 ML VIAL IVP SCH ×3 (08:25→21:22)
[2021-03-04] MEDS: VITAMIN B COMP/VIT C/FOLIC ACID CAPSULE PO SCH (09:00)
[2021-03-04] MEDS: SODIUM ZIRCONIUM CYCLOSILICATE 5 GM POWDER PACKET PO SCH (09:00)
[2021-03-04] MEDS: SODIUM BICARBONATE 650 MG TABLET PO SCH ×2 (09:00→21:23)
[2021-03-04] MEDS: DOCUSATE SODIUM 100 MG CAPSULE PO SCH ×2 (09:00→21:22)
[2021-03-04] MEDS: AmLODIPine BESYLATE 10 MG TABLET PO SCH (09:00)
[2021-03-04] MEDS ORDERED: MIDAZOLAM HCL 2 MG/2 ML VIAL ONE (11:13)
[2021-03-04] MEDS ORDERED: FentaNYL CITRATE PF 100 MCG/2 ML VIAL ONE (11:14)
[2021-03-04] MEDS ORDERED: HEPARIN SODIUM,PORCINE 1,000 UNITS/ML 10 ML VIAL ONE (11:49)
[2021-03-04] MEDS ORDERED: FentaNYL CITRATE PF 100 MCG/2 ML VIAL IVP ONE (12:00)
[2021-03-04] MEDS ORDERED: MIDAZOLAM HCL 2 MG/2 ML VIAL IVP ONE (12:00)
[2021-03-04] MEDS ORDERED: HEPARIN SODIUM,PORCINE 1,000 UNITS/ML VIAL IVP ONE (12:00)
[2021-03-04] MEDS: ACETAMINOPHEN 325 MG TABLET PO PRN (14:40)
[2021-03-04] MEDS ORDERED: SODIUM CHLORIDE 0.9% 1,000 ML ONE ×2 (15:56→15:59)
[2021-03-04] MEDS: AZITHROMYCIN 500 MG/NS 250 ML IV SCH (21:21)
[2021-03-04] MEDS: CefTRIAXone 1 GM/DEXTROSE 50 ML IV SCH (21:22)
[2021-03-05] VITALS (14 sets, daily range): BP systolic 116–150; BP diastolic 43–68
[2021-03-05] MEDS: HEPARIN SODIUM,PORCINE 5,000 UNITS/ML VIAL SQ SCH ×2 (00:12→08:27)
[2021-03-05] MEDS: IPRATROPIUM BROMIDE 0.5 MG/2.5 ML NEB SOLUTION NEB SCH ×6 (02:17→23:00)
[2021-03-05] MEDS: ALBUTEROL SULFATE 2.5 MG/0.5 ML NEB SOLUTION NEB SCH ×5 (02:17→23:00)
[2021-03-05] MEDS: VITAMIN B COMP/VIT C/FOLIC ACID CAPSULE PO SCH (08:26)
[2021-03-05] MEDS: FUROSEMIDE 100 MG/10 ML VIAL IVP SCH ×3 (08:26→20:42)
[2021-03-05] MEDS: DOCUSATE SODIUM 100 MG CAPSULE PO SCH ×2 (08:26→20:42)
[2021-03-05] MEDS: ACETAMINOPHEN 325 MG TABLET PO PRN ×2 (08:26→20:54)
[2021-03-05] MEDS: SODIUM BICARBONATE 650 MG TABLET PO SCH ×2 (08:27→20:42)
[2021-03-05] MEDS: PANTOPRAZOLE SODIUM 40 MG/VIAL IVP SCH (08:27)
[2021-03-05] MEDS ORDERED: SODIUM CHLORIDE 0.9% 2,000 ML ONE (10:02)
[2021-03-05 11:51] LABS: BASOPHILS % (AUTO) 0.4 % (0.0-2.0); EOSINOPHILS % (AUTO) 0.3 % (1.0-6.0); HEMOGLOBIN 7.7 g/dL (12.0-16.0); LYMPHOCYTES # (AUTO) 1.9 K/uL (1.0-4.8); LYMPHOCYTES % (AUTO) 21.1 % (22.0-44.0); MEAN CORPUSCULAR HEMOGLOBIN 29.1 pg (26.0-34.0); MEAN CORPUSCULAR HGB CONC 31.9 G/dL (31.0-37.0); MEAN CORPUSCULAR VOLUME 91 fL (80-100); MONOCYTES # (AUTO) 0.4 K/uL (0.1-1.0); MONOCYTES % (AUTO) 5.1 % (2.0-9.0); NEUTROPHILS # (AUTO) 6.4 K/uL (1.8-7.7); NEUTROPHILS % (AUTO) 73.1 % (40.0-70.0); PLATELET COUNT (AUTO) 135 K/uL (150-450); RED BLOOD CELL COUNT(AUTO) 2.63 MIL/uL (4.00-5.20); RED CELL DISTRIBUTION WIDTH 22.2 % (11.5-14.5)
[2021-03-05] MEDS ORDERED: HEPARIN SODIUM,PORCINE 1,000 UNITS/ML VIAL IVP ONE (12:00)
[2021-03-05 12:05] LABS: ALBUMIN 1.6 g/dL (3.4-5.0); BILIRUBIN,TOTAL 0.2 mg/dL (0.1-1.0); CALCIUM, TOTAL 7.8 mg/dL (8.8-10.5); CREATININE 1.5 mg/dL (0.60-1.30); POTASSIUM 3.3 mmol/L (3.5-5.1); TOTAL PROTEIN, SERUM 6.6 g/dL (6.4-8.2)
[2021-03-05] MEDS: AmLODIPine BESYLATE 10 MG TABLET PO SCH (14:48)
[2021-03-05] MEDS: CefTRIAXone 1 GM/DEXTROSE 50 ML IV SCH (20:41)
[2021-03-05] MEDS: APIXABAN 2.5 MG TABLET PO SCH (20:42)
[2021-03-05] MEDS: CARVEDILOL 3.125 MG TABLET PO SCH (20:44)
[2021-03-05] MEDS: AZITHROMYCIN 500 MG/NS 250 ML IV SCH (21:38)
[2021-03-06] VITALS (17 sets, daily range): BP systolic 100–136; BP diastolic 42–82
[2021-03-06] MEDS: ALBUTEROL SULFATE 2.5 MG/0.5 ML NEB SOLUTION NEB SCH ×6 (03:11→22:47)
[2021-03-06] MEDS: IPRATROPIUM BROMIDE 0.5 MG/2.5 ML NEB SOLUTION NEB SCH ×6 (03:11→22:46)
[2021-03-06] MEDS: HYDROCODONE/ACETAMINOPHEN 5-325 MG TABLET PO PRN ×2 (03:27→23:21)
[2021-03-06] MEDS ORDERED: HEPARIN SODIUM,PORCINE 1,000 UNITS/ML VIAL IVP ONE (12:00)
[2021-03-06 12:36] LABS: ANION GAP 7 mmol/L (8-16); CARBON DIOXIDE 29 mmol/L (22-29); CHLORIDE 99 mmol/L (98-107); CREATININE 0.72 mg/dL (0.60-1.30); GLUCOSE,RANDOM 81 mg/dL (70-110); PHOSPHORUS 1.6 mg/dL (2.5-4.9); SODIUM SERUM 135 mmol/L (136-145); UREA NITROGEN, BLOOD 6 mg/dL (7-18)
[2021-03-06 12:42] LABS: GLOMERULAR FILTR. RATE CALC > 60 mL/min (>60)
[2021-03-06] MEDS: SODIUM BICARBONATE 650 MG TABLET PO SCH ×2 (13:04→21:10)
[2021-03-06] MEDS: DOCUSATE SODIUM 100 MG CAPSULE PO SCH ×2 (13:04→21:10)
[2021-03-06] MEDS: VITAMIN B COMP/VIT C/FOLIC ACID CAPSULE PO SCH (13:04)
[2021-03-06] MEDS: CARVEDILOL 3.125 MG TABLET PO SCH ×2 (13:05→21:10)
[2021-03-06] MEDS: LISINOPRIL 5 MG TABLET PO SCH (13:05)
[2021-03-06] MEDS: APIXABAN 2.5 MG TABLET PO SCH ×2 (13:05→21:10)
[2021-03-06] MEDS: FUROSEMIDE 100 MG/10 ML VIAL IVP SCH ×3 (15:59→21:09)
[2021-03-06] MEDS: PANTOPRAZOLE SODIUM 40 MG/VIAL IVP SCH (15:59)
[2021-03-06] MEDS: CefTRIAXone 1 GM/DEXTROSE 50 ML IV SCH (21:08)
[2021-03-06] MEDS: AZITHROMYCIN 500 MG/NS 250 ML IV SCH (21:49)
[2021-03-07] MEDS: IPRATROPIUM BROMIDE 0.5 MG/2.5 ML NEB SOLUTION NEB SCH ×6 (03:29→23:28)
[2021-03-07] MEDS: ALBUTEROL SULFATE 2.5 MG/0.5 ML NEB SOLUTION NEB SCH ×6 (03:29→23:28)
[2021-03-07 04:00] VITALS: BP 104/43
[2021-03-07 08:39] VITALS: BP 104/38
[2021-03-07] MEDS: VITAMIN B COMP/VIT C/FOLIC ACID CAPSULE PO SCH (08:50)
[2021-03-07] MEDS: CEFUROXIME AXETIL 250 MG TABLET PO SCH ×3 (08:51→23:20)
[2021-03-07] MEDS: DOCUSATE SODIUM 100 MG CAPSULE PO SCH ×2 (08:51→23:21)
[2021-03-07] MEDS: SODIUM BICARBONATE 650 MG TABLET PO SCH (08:51)
[2021-03-07] MEDS: CARVEDILOL 3.125 MG TABLET PO SCH ×2 (08:51→23:20)
[2021-03-07] MEDS: APIXABAN 2.5 MG TABLET PO SCH ×2 (08:51→23:20)
[2021-03-07] MEDS: AZITHROMYCIN 500 MG TABLET PO SCH ×2 (08:51→09:00)
[2021-03-07] MEDS: LISINOPRIL 5 MG TABLET PO SCH (08:51)
[2021-03-07] MEDS: PANTOPRAZOLE SODIUM 40 MG/VIAL IVP SCH (09:00)
[2021-03-07] MEDS: FUROSEMIDE 100 MG/10 ML VIAL IVP SCH ×3 (09:00→21:00)
[2021-03-07 09:27] LABS: CALCIUM, TOTAL 8.6 mg/dL (8.8-10.5); CREATININE 2.05 mg/dL (0.60-1.30); PHOSPHORUS 2.7 mg/dL (2.5-4.9); POTASSIUM 3.3 mmol/L (3.5-5.1)
[2021-03-07 12:01] VITALS: BP 99/42
[2021-03-07 16:53] VITALS: BP 106/44
[2021-03-07 19:10] VITALS: BP 104/50
[2021-03-07] MEDS ORDERED: SODIUM CHLORIDE 0.9% 250 ML IV ONE (20:30)
[2021-03-07 23:45] VITALS: BP 102/52
[2021-03-08] MEDS: ALBUTEROL SULFATE 2.5 MG/0.5 ML NEB SOLUTION NEB SCH ×5 (02:05→23:23)
[2021-03-08] MEDS: IPRATROPIUM BROMIDE 0.5 MG/2.5 ML NEB SOLUTION NEB SCH ×5 (02:05→23:23)
[2021-03-08 03:45] VITALS: BP 111/51
[2021-03-08 08:01] VITALS: BP 109/55
[2021-03-08] MEDS ORDERED: SODIUM BICARBONATE 650 MG TABLET PO SCH (09:00)
[2021-03-08] MEDS: CARVEDILOL 3.125 MG TABLET PO SCH ×3 (09:00→20:57)
[2021-03-08] MEDS: FUROSEMIDE 100 MG/10 ML VIAL IVP SCH (09:00)
[2021-03-08] MEDS: AZITHROMYCIN 500 MG TABLET PO SCH (09:50)
[2021-03-08] MEDS: CEFUROXIME AXETIL 250 MG TABLET PO SCH ×2 (09:50→20:57)
[2021-03-08] MEDS: APIXABAN 2.5 MG TABLET PO SCH ×2 (09:50→20:57)
[2021-03-08] MEDS: DOCUSATE SODIUM 100 MG CAPSULE PO SCH ×2 (09:50→20:57)
[2021-03-08] MEDS: VITAMIN B COMP/VIT C/FOLIC ACID CAPSULE PO SCH (09:51)
[2021-03-08] MEDS ORDERED: HEPARIN SODIUM,PORCINE 1,000 UNITS/ML VIAL IVP ONE (12:00)
[2021-03-08 12:42] VITALS: BP 132/68
[2021-03-08 13:17] LABS: BASOPHILS % (AUTO) 0.8 % (0.0-2.0); EOSINOPHILS % (AUTO) 1.2 % (1.0-6.0); HEMATOCRIT 26.4 % (36-46); HEMOGLOBIN 8.3 g/dL (12.0-16.0); LYMPHOCYTES # (AUTO) 1.7 K/uL (1.0-4.8); LYMPHOCYTES % (AUTO) 22.7 % (22.0-44.0); MEAN CORPUSCULAR HEMOGLOBIN 28.8 pg (26.0-34.0); MEAN CORPUSCULAR HGB CONC 31.5 G/dL (31.0-37.0); MEAN CORPUSCULAR VOLUME 92 fL (80-100); MONOCYTES # (AUTO) 0.4 K/uL (0.1-1.0); MONOCYTES % (AUTO) 5.1 % (2.0-9.0); NEUTROPHILS # (AUTO) 5.3 K/uL (1.8-7.7); NEUTROPHILS % (AUTO) 70.2 % (40.0-70.0); PLATELET COUNT (AUTO) 161 K/uL (150-450); RED BLOOD CELL COUNT(AUTO) 2.89 MIL/uL (4.00-5.20)
[2021-03-08 13:35] LABS: ALBUMIN 1.2 g/dL (3.4-5.0); BILIRUBIN,TOTAL 0.3 mg/dL (0.1-1.0); CALCIUM, TOTAL 7.8 mg/dL (8.8-10.5); CREATININE 3.06 mg/dL (0.60-1.30); MAGNESIUM 1.8 mg/dL (1.80-2.40); POTASSIUM 3.1 mmol/L (3.5-5.1); TOTAL PROTEIN, SERUM 5.5 g/dL (6.4-8.2)
[2021-03-08 14:05] VITALS: BP 121/42
[2021-03-08] MEDS ORDERED: SODIUM CHLORIDE 0.9% 2,000 ML ONE (14:10)
[2021-03-08] MEDS: PANTOPRAZOLE SODIUM 40 MG/VIAL IVP SCH (14:42)
[2021-03-08 20:14] VITALS: BP 121/66
[2021-03-08] MEDS: ACETAMINOPHEN 325 MG TABLET PO PRN (21:55)
[2021-03-09] VITALS (7 sets, daily range): BP systolic 96–118; BP diastolic 50–60
[2021-03-09] MEDS: ALBUTEROL SULFATE 2.5 MG/0.5 ML NEB SOLUTION NEB SCH ×5 (03:53→19:08)
[2021-03-09] MEDS: IPRATROPIUM BROMIDE 0.5 MG/2.5 ML NEB SOLUTION NEB SCH ×5 (03:53→19:09)
[2021-03-09] MEDS: ACETAMINOPHEN 325 MG TABLET PO PRN ×2 (04:25→20:10)
[2021-03-09] MEDS: CEFUROXIME AXETIL 250 MG TABLET PO SCH ×2 (08:55→20:10)
[2021-03-09] MEDS: VITAMIN B COMP/VIT C/FOLIC ACID CAPSULE PO SCH (08:55)
[2021-03-09] MEDS: DOCUSATE SODIUM 100 MG CAPSULE PO SCH ×2 (08:55→20:10)
[2021-03-09] MEDS: APIXABAN 2.5 MG TABLET PO SCH ×2 (08:55→21:49)
[2021-03-09] MEDS: AZITHROMYCIN 500 MG TABLET PO SCH (08:55)
[2021-03-09] MEDS: CARVEDILOL 3.125 MG TABLET PO SCH ×2 (08:56→20:10)
[2021-03-09] MEDS: PANTOPRAZOLE SODIUM 40 MG/VIAL IVP SCH (08:57)
[2021-03-09] MEDS ORDERED: EPOETIN ALFA 10,000 UNITS/ML VIAL SQ SCH (09:00)
[2021-03-09 10:14] LABS: HEMATOCRIT 24.2 % (36-46); HEMOGLOBIN 7.5 g/dL (12.0-16.0); LYMPHOCYTES # (AUTO) 0.9 K/uL (1.0-4.8); MEAN CORPUSCULAR HEMOGLOBIN 28.5 pg (26.0-34.0); MEAN CORPUSCULAR HGB CONC 31.1 G/dL (31.0-37.0); MEAN CORPUSCULAR VOLUME 92 fL (80-100); MONOCYTES # (AUTO) 0.6 K/uL (0.1-1.0); MONOCYTES % (AUTO) 9.6 % (2.0-9.0); NEUTROPHILS # (AUTO) 4.5 K/uL (1.8-7.7); NEUTROPHILS % (AUTO) 71.4 % (40.0-70.0); PLATELET COUNT (AUTO) 136 K/uL (150-450); RED BLOOD CELL COUNT(AUTO) 2.64 MIL/uL (4.00-5.20); RED CELL DISTRIBUTION WIDTH 21.9 % (11.5-14.5)
[2021-03-09 10:30] LABS: ALBUMIN 1.3 g/dL (3.4-5.0); BILIRUBIN,TOTAL 0.2 mg/dL (0.1-1.0); CALCIUM, TOTAL 7.5 mg/dL (8.8-10.5); CREATININE 2.38 mg/dL (0.60-1.30); MAGNESIUM 1.7 mg/dL (1.80-2.40); POTASSIUM 3.1 mmol/L (3.5-5.1); TOTAL PROTEIN, SERUM 5.7 g/dL (6.4-8.2)
[2021-03-09] MEDS ORDERED: SODIUM CHLORIDE 0.9% 250 ML IV ONE (14:42)
[2021-03-09] MEDS: POTASSIUM CHL 10 MEQ/WATER 50 ML IV SCH ×2 (14:59→19:04)
[2021-03-09] MEDS ORDERED: LORazepam 0.5 MG TABLET PO PRN (20:15)
[2021-03-10] VITALS (12 sets, daily range): BP systolic 98–135; BP diastolic 36–62
[2021-03-10] MEDS: ALBUTEROL SULFATE 2.5 MG/0.5 ML NEB SOLUTION NEB SCH ×6 (00:29→20:04)
[2021-03-10] MEDS: IPRATROPIUM BROMIDE 0.5 MG/2.5 ML NEB SOLUTION NEB SCH ×6 (00:29→20:04)
[2021-03-10] MEDS: HYDROCODONE/ACETAMINOPHEN 5-325 MG TABLET PO PRN (00:36)
[2021-03-10] MEDS: PANTOPRAZOLE SODIUM 40 MG/VIAL IVP SCH (08:30)
[2021-03-10] MEDS: DOCUSATE SODIUM 100 MG CAPSULE PO SCH (08:30)
[2021-03-10] MEDS: APIXABAN 2.5 MG TABLET PO SCH (08:30)
[2021-03-10] MEDS: AZITHROMYCIN 500 MG TABLET PO SCH (08:30)
[2021-03-10] MEDS: CEFUROXIME AXETIL 250 MG TABLET PO SCH (08:30)
[2021-03-10] MEDS: VITAMIN B COMP/VIT C/FOLIC ACID CAPSULE PO SCH (08:30)
[2021-03-10] MEDS: CARVEDILOL 3.125 MG TABLET PO SCH (09:00)
[2021-03-10] MEDS ORDERED: HEPARIN SODIUM,PORCINE 1,000 UNITS/ML VIAL IVP ONE (20:14)
== END 2021-03-10 20:15 | DRG 264 ==
LOC: EMS 06:12 → 5S 11:51
PROVIDERS: ADMIT Hospitalist; ATTEND Hospitalist
PROC: 0W9B3ZZ Drainage of Left Pleural Cavity, Percutaneous Approach (ICD-10-PCS; 2021-02-26)
PROC: 03170KD Bypass Right Brachial Artery to Upper Arm Vein with Nonautologous Tissue Substitute, Open Approach (ICD-10-PCS; principal; 2021-02-27 14:45)
PROC: 0JH63XZ Insertion of Tunneled Vascular Access Device into Chest Subcutaneous Tissue and Fascia, Percutaneous Approach (ICD-10-PCS; 2021-03-04)
PROC: 02HV33Z Insertion of Infusion Device into Superior Vena Cava, Percutaneous Approach (ICD-10-PCS; 2021-03-04)
PROC: B548ZZA Ultrasonography of Superior Vena Cava, Guidance (ICD-10-PCS; 2021-03-04)
PROC: B5181ZA Fluoroscopy of Superior Vena Cava using Low Osmolar Contrast, Guidance (ICD-10-PCS; 2021-03-04)
PROC: 5A1D70Z Performance of Urinary Filtration, Intermittent, Less than 6 Hours Per Day (ICD-10-PCS; 2021-03-04)
PROC: 5A1D70Z Performance of Urinary Filtration, Intermittent, Less than 6 Hours Per Day (ICD-10-PCS; 2021-03-05)
PROC: 5A1D70Z Performance of Urinary Filtration, Intermittent, Less than 6 Hours Per Day (ICD-10-PCS; 2021-03-06)
PROC: 5A1D70Z Performance of Urinary Filtration, Intermittent, Less than 6 Hours Per Day (ICD-10-PCS; 2021-03-08)
PROC: 5A1D70Z Performance of Urinary Filtration, Intermittent, Less than 6 Hours Per Day (ICD-10-PCS; 2021-03-10)
DX: I13.2 Hypertensive heart and chronic kidney disease with heart failure and with stage 5 chronic kidney disease, or end stage renal disease (principal); I50.23 Acute on chronic systolic (congestive) heart failure; E43 Unspecified severe protein-calorie malnutrition; N18.6 End stage renal disease; J18.9 Pneumonia, unspecified organism; N17.9 Acute kidney failure, unspecified; N02.8 Recurrent and persistent hematuria with other morphologic changes; I82.A12 Acute embolism and thrombosis of left axillary vein; N25.81 Secondary hyperparathyroidism of renal origin; E87.0 Hyperosmolality and hypernatremia; J91.8 Pleural effusion in other conditions classified elsewhere; J98.11 Atelectasis; E87.5 Hyperkalemia; E11.22 Type 2 diabetes mellitus with diabetic chronic kidney disease; E78.5 Hyperlipidemia, unspecified; D69.6 Thrombocytopenia, unspecified; E78.00 Pure hypercholesterolemia, unspecified; E87.6 Hypokalemia; F03.90 Unspecified dementia, unspecified severity, without behavioral disturbance, psychotic disturbance, mood disturbance, and anxiety; I08.1 Rheumatic disorders of both mitral and tricuspid valves; R06.03 Acute respiratory distress; E88.09 Other disorders of plasma-protein metabolism, not elsewhere classified; D63.1 Anemia in chronic kidney disease; M10.9 Gout, unspecified; I25.10 Atherosclerotic heart disease of native coronary artery without angina pectoris; I25.5 Ischemic cardiomyopathy; Z95.1 Presence of aortocoronary bypass graft; Z82.49 Family history of ischemic heart disease and other diseases of the circulatory system; Z83.3 Family history of diabetes mellitus; Z87.441 Personal history of nephrotic syndrome; Z79.899 Other long term (current) drug therapy; Z68.31 Body mass index [BMI] 31.0-31.9, adult; Z20.822 Contact with and (suspected) exposure to COVID-19
CPT/HCPCS: 32555; 36245; 36561; 71045; 71250; 76001; 76937; 76942; 80048; 80053; 81001; 81002; 81050; 82465; 82550; 82570; 82575; 82728; 82945; 82962; 83540; 83550; 83615; 83735; 83880; 83970; 83986; 84100; 84132; 84145; 84155; 84156; 84157; 84166; 84300; 84484; 84540; 85025; 85610; 85730; 87015; 87075; 87101; 87205; 87206; 87340; 88108; 89051; 90935; 93005; 93306; 93970; 94640; 97162; 97167; 99285; C9113; J0456; J0461; J0690; J0696; J0885; J1644; J1815; J1940; J2250; J2270; J2704; J3010; J3480; J3490; J3535; J7030; J7050; Q0162; Q9967; 36415-L1; 36415-TC; 87070; C1716; J7613; U0003; Z7610